=== PATIENT | female | born 1965 | race Caucasian/White ===

== ENCOUNTER 2016-10-15 17:16 | Observation (INO) | payer MEDICAID ==
--- NOTE | 2016-10-15 18:02 | CPEKG ---
Heart Rate: 69 RR Interval: 870 P-R Interval: 180 QRSD Interval: 94 QT Interval: 416 QTC Interval: 446 P Ridgway: 47 QRS Ridgway: 17 T Wave Ridgway: 38 EKG Severity - NORMAL ECG - EKG Impression: SINUS RHYTHM Electronically Signed By: Jay Crook 15-Oct-2016 21:22:39
[2016-10-15 18:10] LABS: % IMMATURE GRANULYOCYTES 0.3 % (0.0-1.1); ABSOLUTE IMMATURE GRANULOCYTES 0.02 10^3/uL (0.00-0.10); ADD DIFF? NO; ADD MORPH? NO; ADD SCAN? NO; ATYPICAL LYMPHOCYTE FLAG 10 (0-99); FRAGMENT RBC FLAG 0 (0-99); HEMATOCRIT 42.2 % (38.0-47.0); HEMOGLOBIN 13.9 g/dL (12.6-16.3); LEFT SHIFT FLG 0 (0-99); LIPEMIA HEMOLYSIS FLAG 80 (0-99); MEAN CELL HEMOGLOBIN 27.3 pg (27.9-34.1); MEAN CELL HEMOGLOBIN CONCENTR. 32.9 g/dL (32.4-36.7); MEAN CELL VOLUME 82.9 fL (81.5-99.8); MEAN PLATELET VOLUME 10.4 fL (8.7-11.7); PLATELET CLUMPS FLAG 10 (0-99); PLATELET COUNT 280 10^3/uL (150-400); RED BLOOD CELL COUNT 5.09 10^6/uL (4.18-5.33); RED CELL DISTRIBUTION WIDTH 12.9 % (11.5-15.2)
[2016-10-15 18:34] LABS: TROPONIN I < 0.012 ng/mL (0-0.034)
[2016-10-15 18:57] LABS: ANION GAP 11 mEq/L (8-16); CALCIUM 8.8 mg/dL (8.5-10.4); CARBON DIOXIDE 23 mEq/l (22-31); CHLORIDE 105 mEq/L (97-110); CREATININE 0.6 mg/dL (0.6-1.0); GLOMERULAR FILTRATION RATE > 60; GLUCOSE 106 mg/dL (70-100); POTASSIUM 3.3 mEq/L (3.5-5.2); SODIUM 139 mEq/L (134-144)
--- NOTE | 2016-10-15 19:54 | EDPHY ---
H & P Stated Complaint: left shoulder scapula pain that radiates down arm, dull CP HPI/ROS: Chief complaint: Left shoulder pain History of present illness: This is a 51-year-old female who presents to the emergency department for evaluation of left shoulder pain. Patient reports she has had pain for the last few weeks. It has been intermittent in nature. She reports the pain is around the scapula and upper shoulder. She does report the pain radiates down to her elbow. She is concerned because today she started developed chest pain. She describes left-sided chest pain. She has a hard time describing it. She denies specific precipitating factors. She denies alleviating factors. She denies other associated signs or symptoms including no cough, no trouble breathing, no fever or cold symptoms. Review of systems: A 10 point review of systems was obtained and other than described above was negative - Personal History LMP (Females 10-55): Over 28 Days Ago Current Tetanus Diphtheria and Acellular Pertussis (TDAP): Unsure - Social History Smoking Status: Never smoked - Physical Exam Exam: General Appearance: Alert, nontoxic. Eyes: Pupils equal and round no pallor or injection. ENT, Mouth: Mucous membranes moist. Respiratory: There are no retractions, lungs are clear to auscultation. Cardiovascular: Regular rate and rhythm. Gastrointestinal: Abdomen is soft and nontender, no masses, bowel sounds normal. Neurological: Alert and oriented x4. Strength and sensation intact and symmetrical. Skin: Warm and dry, no rashes. Musculoskeletal: Neck is supple nontender. Extremities are symmetrical, full range of motion. Psychiatric: Patient is oriented X 3, there is no agitation. Constitutional: Initial Vital Signs Temperature (C) 36.8 C 10/15/16 17:18 Heart Rate 82 10/15/16 17:18 Respiratory Rate 14 10/15/16 17:18 Blood Pressure 116/83 H 10/15/16 17:18 O2 Sat (%) 96 10/15/16 17:18 O2 Delivery Mode Room Air Allergies/Adverse Reactions: No Known Allergies Allergy (Unverified 10/15/16 21:30) Home Medications: Medication Instructions Recorded Ibuprofen [Motrin (*)] 400 - 800 mg PO BID PRN 10/15/16 Medical Decision Making - Diagnostics Imaging: Imaging Impressions Chest X-Ray 10/15/16 18:50 Impression: Clear lungs except for minimal bibasilar atelectasis. ED Course/Re-evaluation: Patient is discussed with my secondary supervising physician Dr. Ezequiel Hunt. Patient presents to the emergency department complaining of left shoulder discomfort. However, she developed chest pain today which is new for her. She does have a very strong family history of cardiac disease, she has never had a cardiac evaluation. Initial evaluation here is unremarkable. She will be admitted to the [facility] for cardiac rule out. Plan has been discussed with the patient who voiced understanding and agreement with it. Differential Diagnosis: Included but not limited to musculoskeletal pain, pneumothorax, pulmonary infections, pulmonary embolism, ACS, reflux - Data Points Laboratory Results: Laboratory Results 10/15/16 18:00 10/15/16 18:00 10/15/16 10/15/16 10/15/16 18:00 18:00 18:00 WBC RBC Hgb Hct MCV MCH MCHC RDW Plt Count MPV Neut % (Auto) Lymph % (Auto) [place] % (Auto) Eos % (Auto) Baso % (Auto) Nucleat RBC Rel Count Absolute Neuts (auto) Absolute Lymphs (auto) Absolute Monos (auto) Absolute Eos (auto) Absolute Basos (auto) Absolute Nucleated RBC Immature Gran % Immature Gran # D-Dimer < 0.27 ug/mLFEU ug/mLFEU (0.00-0.50) Sodium 139 mEq/L mEq/L (134-144) Potassium 3.3 mEq/L L mEq/L (3.5-5.2) Chloride 105 mEq/L mEq/L (97-110) Carbon Dioxide 23 mEq/l mEq/l (22-31) Anion Gap 11 mEq/L mEq/L (8-16) BUN 16 mg/dL mg/dL (7-23) Creatinine 0.6 mg/dL mg/dL (0.6-1.0) Estimated GFR > 60 Glucose 106 mg/dL H mg/dL (70-100) Calcium 8.8 mg/dL mg/dL (8.5-10.4) Troponin I < 0.012 ng/mL ng/mL (0-0.034) Beta HCG, Qual NEGATIVE 10/15/16 18:00 WBC 7.60 10^3/uL 10^3/uL (3.80-9.50) RBC 5.09 10^6/uL 10^6/uL (4.18-5.33) Hgb 13.9 g/dL g/dL (12.6-16.3) Hct 42.2 % % (38.0-47.0) MCV 82.9 fL fL (81.5-99.8) MCH 27.3 pg L pg (27.9-34.1) MCHC 32.9 g/dL g/dL (32.4-36.7) RDW 12.9 % % (11.5-15.2) Plt Count 280 10^3/uL 10^3/uL (150-400) MPV 10.4 fL fL (8.7-11.7) Neut % (Auto) 52.4 % % (39.3-74.2) Lymph % (Auto) 36.2 % % (15.0-45.0) [place] % (Auto) 8.3 % % (4.5-13.0) Eos % (Auto) 2.1 % % (0.6-7.6) Baso % (Auto) 0.7 % % (0.3-1.7) Nucleat RBC Rel Count 0.0 % % (0.0-0.2) Absolute Neuts (auto) 3.99 10^3/uL 10^3/uL (1.70-6.50) Absolute Lymphs (auto) 2.75 10^3/uL 10^3/uL (1.00-3.00) Absolute Monos (auto) 0.63 10^3/uL 10^3/uL (0.30-0.80) Absolute Eos (auto) 0.16 10^3/uL 10^3/uL (0.03-0.40) Absolute Basos (auto) 0.05 10^3/uL 10^3/uL (0.02-0.10) Absolute Nucleated RBC 0.00 10^3/uL 10^3/uL (0-0.01) Immature Gran % 0.3 % % (0.0-1.1) Immature Gran # 0.02 10^3/uL 10^3/uL (0.00-0.10) D-Dimer Sodium Potassium Chloride Carbon Dioxide Anion Gap BUN Creatinine Estimated GFR Glucose Calcium Troponin I Beta HCG, Qual Departure - Departure Disposition: [facility] Inpatient Acute Clinical Impression: Chest pain Qualifiers: Chest pain type: unspecified Qualified Code(s): R07.9 - Chest pain, unspecified Condition: Good
[2016-10-15] MEDS ORDERED: ONDANSETRON DISINTEGRATING 4 MG TAB PO PRN (21:30)
[2016-10-15] MEDS: ACETAMINOPHEN 325 MG TAB PO PRN (22:05)
[2016-10-15] MEDS ORDERED: PROTOCOL POTASSIUM 1 DOSE MISC PRN (22:39)
--- NOTE | 2016-10-15 23:18 | GHP ---
[f rep st] HISTORY AND PHYSICAL DATE OF ADMISSION: 10/15/2016 CHIEF COMPLAINT: Chest and shoulder pain. 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 She notes she initially thought she had injured her shoulder when she developed pain in her left scapula with radiation down her arm. That pain in itially went away, but then came back again in the last couple of days. It was so severe that she w as having difficulty sleeping. There seemed to be also an association of chest pain that she says w as a lot like indigestion and heartburn. These are symptoms she has not had in the past. She does have a family history of heart disease and became concerned that this could be related to her heart and for that reason, came to the ER for further evaluation. She currently denies any active pain. She does not note any alleviating or exacerbating features for this pain. 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 PAST MEDICAL HISTORY: Includes AKA, status post trauma as a child, and infection of her stump. PAST SURGICAL HISTORY: 1. Multiple left lower extremity surgeries as a child. 2. Laparoscopic exploration for chronic abdominopelvic pain. SOCIAL HISTORY: Patient has 5 children. She is a never smoker. She denies alcohol or drugs. She is . FAMILY HISTORY: Patient notes that her mother had coronary artery disease in her 50s and had a byvt ss surgery in her 50s but lived to be 84. Sister also with heart disease that she does not know raji linares details about. REVIEW OF SYSTEMS: 10-point review of systems obtained, negative except as per HPI. MEDICATIONS: Include ibuprofen. ALLERGIES: No known drug allergies. PHYSICAL EXAM: VITAL SIGNS: BP 103/72, heart rate 76, respiratory rate 16, O2 sats 95% on room air . Temperature is 36.7. GENERAL APPEARANCE: Well-developed, well-nourished female, awake and alert , no acute distress. EYES: Anicteric. HENT: Oropharynx clear. CARDIOVASCULAR: RRR. No MRG. P ULMONARY: CTA bilaterally. Normal work of breathing. ABDOMEN: Soft, nontender. Positive bowel s ounds. EXTREMITIES: No clubbing, cyanosis, or edema. She does have a left AKA. SKIN: Warm, dry, well perfused. NEURO/PSYCH: Oriented, appropriate, calm, pleasant. DATA RESULTS: Chest x-ray personally reviewed and interpreted showing clear lungs, minimal basilar atelectasis. EKG personally reviewed and interpreted, showing sinus rhythm. Labs: CBC is unremarkable. D-dimer is negative. Chemistry notable only for a potassium of 3.3. T roponin is less than 0.012. ASSESSMENT AND PLAN: This is a 51-year-old female with past medical history of [id number] amput ation with recurrent infection, presenting with chest pain, and left shoulder and arm pain. 1. Chest, shoulder and arm pain, concerning for possible anginal equivalent. She does have a famil y history of early onset cardiac disease in her mother. Initial workup so far negative including ne gative D-dimer, negative troponin and normal EKG. Plan will be for exercise stress test in the [facility]. She will be monitored on telemetry overnight with serial troponins obtained. She has been giv en an aspirin. 2. Hypokalemia. We will replete. 3. History of amputation and history of stump infection, with no current issues. 4. Disposition: Observation status. I suspect she will need less than 48-hour stay for evaluation and management of above. 5. The patient is new to my care. Old records reviewed, summarized as per HPI and past medical his tory. Care plan reviewed with ER physician, including plans for a stress test in the morning. /[id number]/MODL
[2016-10-16] MEDS ORDERED: POTASSIUM CL 10 MEQ TAB PO ONE (02:44)
[2016-10-16] MEDS: ACETAMINOPHEN 325 MG TAB PO PRN (03:45)
[2016-10-16] MEDS ORDERED: ASPIRIN 325 MG TAB PO SCH (09:00)
[2016-10-16] MEDS ORDERED: REGADENOSON 0.4 MG/5 ML SYR IVP ONE (10:22)
--- NOTE | 2016-10-16 11:40 | CPR ---
[f rep st] NONINVASIVE CARDIAC PROCEDURE REPORT DATE OF PROCEDURE: 10/16/2016 PROCEDURE: Lexiscan nuclear stress test. INDICATION FOR PROCEDURE: A 51-year-old female with strong family history of coronary artery diseas e, but no previous cardiac history who presented to the emergency room with 3 weeks of waxing and wa karine, left scapular pressure radiating down her left arm that has been getting worse with exertion. Her D-dimer was negative. She has had negative serial troponins. Nuclear stress testing is being ordered for further risk stratification. DESCRIPTION OF PROCEDURE: Informed consent was obtained. Baseline heart rate and blood pressure al jorge with resting EKG were obtained in the supine position. There was continuous pulse oximetry, wit h intermittent blood pressures every 2 minutes. Stress was performed via standard Lexiscan protocol with Lexiscan 0.4 mg IV push followed by 22.8 millicuries of sestamibi. She was observed for the s tress portion of the test lasting 2 minutes and another 5 minutes of recovery. FINDINGS: Baseline heart rate 72 beats per minute, baseline blood pressure 100/60 mmHg. Baseline o xygen saturation is 97%. Baseline EKG shows normal sinus rhythm at 69 beats per minute with normal QRS axis and intervals. Baseline corrected QT interval is 446 milliseconds. Following injection of Lexiscan, heart rate bessie slightly to 87 beats per minute with a blood pressure of 108/62 mmHg. Pe ak blood pressure was 110/64 mmHg. The patient complained of some shortness of breath and head full ness along with numbness and tingling in her right leg. Her symptoms resolved within minutes and du ring recovery her vital signs were stable with heart rates around 78 beats per minute with blood pre ssure around 110/62 mmHg. Oxygen saturation remained greater than 95% throughout the duration of th e test. There were no significant ischemic EKG changes during the test; however, there was prolonga tion of corrected QT interval to 495 milliseconds around the time of peak stress. IMPRESSION: 1. Unremarkable Lexiscan nuclear stress test. 2. Admission with exertional left shoulder and left scapular pain radiating down the left arm. 3. Prolongation of corrected QT interval with Lexiscan stress. 4. 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 5. Strong family history of coronary artery disease. PLAN: The patient will undergo stress imaging at this time. If stress imaging is abnormal, she annabel l need rest scans and likely an overnight stay as she has had chest discomfort and left arm discomfo rt occurring randomly throughout this admission. /[id number]/MODL
[2016-10-16 11:45] VITALS: BP 101/60; PULSE 73; RESP 16; TEMP 97.8; O2SAT 94
--- NOTE | 2016-10-16 16:40 | PDDCSUM ---
Discharge Summary Discharge Summary: DISCHARGE DIAGNOSES: -shoulder pain of uncertain etiology, resolved MERCHANT TAILOR: Dr. Rui Becreril of Cardiology PROCEDURES: Lexiscan stress test with myocardial perfusion imaging HOSPITAL COURSE SUMMARY: This patient came in after some exertional related left shoulder pain. Her initial evaluation showed no evidence of injury or ischemia, no arrhythmia, no heart failure. She had no sign of PE. She was moving her arm and shoulder without difficulty and there was no sign of injury. She was observed overnight on hospital monitor and with repeat troponins all of which were normal. She underwent Lexiscan stress testing with myocardial perfusion imaging which was normal. At this point she is stable for discharge to home. I did review with her the possibility that there is some other undiagnosed cause of her pain, and also and unlikely but always existed possibility of false negative test results here. She knows to seek out ongoing attention for any recurrent symptoms. PENDING TEST RESULTS: None MEDICATION CHANGES: None FOLLOW-UP PLAN: With her primary care physician as needed
== END 2016-10-16 15:09 | disposition home or self-care (01) ==
LOC: F1N 21:15
PROVIDERS: ADMIT Internal Medicine; ATTEND Internal Medicine
DX: R07.9 Chest pain, unspecified (principal); M25.512 Pain in left shoulder; Z82.49 Family history of ischemic heart disease and other diseases of the circulatory system; Z89.612 Acquired absence of left leg above knee
CPT/HCPCS: 71020; 78451; 93005; 93017; A9500; G0378; J2785

== ENCOUNTER → 2017-03-31 | Outpatient (CLI) | payer MEDICAID | LOC: FIMAGING 15:43 | PROVIDERS: ATTEND Orthopaedic Surgery | DX: M17.11 Unilateral primary osteoarthritis, right knee (principal) ==

== ENCOUNTER 2017-04-25 08:50 | Inpatient (IN) | payer MEDICAID ==
--- NOTE | 2017-04-25 06:44 | PDHPUP ---
History & Physical Update H&P update statement: This history and physical update is based on an assessment of the patient which was completed after admission or registration (within 24 hours), but prior to the surgery/procedure.
--- NOTE | 2017-04-25 06:44 | PDIAF ---
- Diagnosis Diagnosis: right knee djd Code Status: Full Code - Medication Management Discharge Medications: Medications to Continue on Transfer NK [No Known Home Meds] 04/19/17 [Last Taken Unknown] Discharge Medications: Refer to the Discharge Home Medication list for PRN reason. - Orders Services needed: Physical Therapy Activity/Weight Bearing Restrictions: daily dressing changes. may shower without bandage. no soaking or immersion. wbat. rom as tolerated. seek attn for increasing leg pain, swelling, drainage, other focal complaint - Follow Up Care Current Providers and Referrals: Ezequiel Dawkins MD [Primary Care Provider] -
[~2017-04-25 08:50] MED LIST: BACITRACIN 50,000 UNITS/10 ML SYR IRR ONE; BUPIVACAINE 0.5% 30 ML SDV ONE; CALCIUM CHLORIDE 1 GM/10 ML INJ ONE; NS IV ONE; POLYMYXIN B SULFATE 500,000 UNIT/10 ML SYR IRR ONE; ROPIVACAINE 0.2% 80 MG, EPINEPHrine 0.2 MG, KETOROLAC TROMETHAMINE 30 MG, morphINE 10 M... IU ONE; THROMBIN (BOVINE) 5,000 UNIT VIAL TP ONE; TRANEXAMIC ACID IV ONE; ceFAZolin 2 GM/DEXTROSE 100 ML IV ONE
[2017-04-25] MEDS ORDERED: FAMOTIDINE 20 MG TAB PO ONE (09:09)
[2017-04-25] MEDS ORDERED: ACETAMINOPHEN 325 MG TAB PO ONE (09:09)
[2017-04-25] MEDS ORDERED: LIDOCAINE 1% 2 ML INJ ID PRN (09:27)
[2017-04-25] MEDS ORDERED: LR 1,000 ML IV ONE (09:27)
[2017-04-25] MEDS ORDERED: CALCIUM CHLORIDE 1 GM/10 ML INJ ONE (10:00)
[2017-04-25] MEDS ORDERED: THROMBIN (BOVINE) 5,000 UNIT VIAL TP ONE (10:00)
[2017-04-25] MEDS ORDERED: ceFAZolin 1 GM/5 ML SYR ONE ×2 (10:01→10:02)
[2017-04-25] MEDS ORDERED: MIDAZOLAM 2 MG/2 ML VIAL ONE (10:19)
[2017-04-25] MEDS ORDERED: HYDROmorphONE/DILAUDID 2 MG/ML INJ ONE (10:32)
[2017-04-25] MEDS ORDERED: LIDOCAINE 2% 5 ML SDV ONE (10:32)
[2017-04-25] MEDS ORDERED: PROPOFOL 200 MG/20 ML VIAL ONE ×2 (10:32→10:58)
[2017-04-25] MEDS ORDERED: ONDANSETRON 4 MG/2 ML VIAL ONE (10:32)
[2017-04-25] MEDS ORDERED: DEXAMETHASONE 4 MG/ML VIAL ONE (10:32)
[2017-04-25] MEDS ORDERED: KETOROLAC 30 MG/1 ML SDV ONE (10:32)
[2017-04-25] MEDS ORDERED: MIDAZOLAM 2 MG/2 ML VIAL IVP ONE (10:38)
--- NOTE | 2017-04-25 10:38 | PDANEPAE ---
ANE History of Present Illness tka ANE Past Medical History - Cardiovascular History Hx Hypertension: No Hx Arrhythmias: No Hx Chest Pain: No Hx Coronary Artery / Peripheral Vascular Disease: No Hx CHF / Valvular Disease: No Hx Palpitations: No - Pulmonary History Hx COPD: No Hx Asthma/Reactive Airway Disease: No Hx Recent Upper Respiratory Infection: No Hx Oxygen in Use at Home: No Hx Sleep Apnea: No Sleep Apnea Screening Result - Last Documented: Negative - Neurologic History Hx Cerebrovascular Accident: No Hx Seizures: No Hx Dementia: No - Endocrine History Hx Diabetes: No - Renal History Hx Renal Disorders: No - Liver History Hx Hepatic Disorders: No - Neurological & Psychiatric Hx Hx Neurological and Psychiatric Disorders: No - Cancer History Hx Cancer: No - Congenital Disorder History Hx Congenital Disorders: No - GI History Hx Gastrointestinal Disorders: No - Other Health History Other Health History: amputation of left leg - Chronic Pain History Chronic Pain: Yes (right hip) - Surgical History Prior Surgeries: 2016 infection debridment ANE Review of Systems Review of Systems: - Exercise capacity METS (RN): 4 METS ANE Patient History - Allergies Allergies/Adverse Reactions: No Known Allergies Allergy (Unverified 10/15/16 21:30) - Home Medications Home Medications: NK [No Known Home Meds] 04/19/17 [Last Taken Unknown] - NPO status NPO Since - Liquids (Date): 04/24/17 NPO Since - Liquids (Time): 22:00 NPO Since - Solids (Date): 04/24/17 NPO Since - Solids (Time): 20:00 - Anes Hx Anes Hx: no prior problems - Smoking Hx Smoking Status: Never smoked - Family Anes Hx Family Hx Anesthesia Complications: none ANE Labs/Vital Signs - Vital Signs Blood Pressure: 114/63 Heart Rate: 68 Respiratory Rate: 20 O2 Sat (%): 93 Height: 177.8 cm Weight: 106.594 kg ANE Physical Exam - Airway Mallampati Score: Class 2 Mouth exam: normal dental/mouth exam - Pulmonary Pulmonary: no respiratory distress - Cardiovascular Cardiovascular: regular rate and rhythym ANE Anesthesia Plan Anesthesia Plan: GA w LMA Regional Anesthesia: adductor canal FNB
[2017-04-25] MEDS ORDERED: PROMETHAZINE HCL 25 MG/ML INJ IVP PRN (10:43)
[2017-04-25] MEDS ORDERED: ONDANSETRON DISINTEGRATING 4 MG TAB PO PRN (10:43)
[2017-04-25] MEDS ORDERED: METOCLOPRAMIDE 10 MG/2 ML VIAL IVP PRN (10:43)
[2017-04-25] MEDS ORDERED: PROMETHAZINE HCL 25 MG SUPPR PR PRN (10:43)
[2017-04-25] MEDS ORDERED: BISACODYL 10 MG SUPP PR PRN (10:43)
[2017-04-25] MEDS ORDERED: DIAZEPAM 5 MG TAB PO PRN (10:43)
[2017-04-25] MEDS ORDERED: diphenhydrAMINE 25 MG CAP PO PRN (10:43)
[2017-04-25] MEDS ORDERED: LACTULOSE 20 GM/30 ML UDCUP PO PRN (10:43)
[2017-04-25] MEDS ORDERED: TEMAZEPAM 15 MG CAP PO PRN (10:43)
[2017-04-25] MEDS ORDERED: traMADol 50 MG TAB PO PRN (10:43)
[2017-04-25] MEDS ORDERED: POLYETHYLENE GLYCOL 3350 17 GM PKT PO PRN (10:43)
[2017-04-25] MEDS ORDERED: ONDANSETRON 4 MG/2 ML VIAL IVP PRN ×2 (10:43→13:01)
[2017-04-25] MEDS ORDERED: DIPHENOXYLATE/ATROPINE LOMOTIL 1 TAB PO PRN (10:43)
[2017-04-25] MEDS ORDERED: MAGNESIUM HYDROXIDE 30 ML UDCUP PO PRN (10:43)
[2017-04-25] MEDS ORDERED: LR 1,000 ML IV SCH (11:00)
[2017-04-25] MEDS ORDERED: ceFAZolin 2 GM/SWFI 2 GM/20 ML SYR IVP ONE (11:00)
[2017-04-25] MEDS ORDERED: ROPIVACAINE HCL 150 MG/30 ML INJ ONE (11:08)
[2017-04-25] MEDS ORDERED: HYDROmorphONE/DILAUDID 1 MG/ML INJ ONE ×2 (12:57→13:27)
[2017-04-25] MEDS: HYDROmorphONE/DILAUDID 1 MG/ML INJ IVP PRN ×5 (13:00→13:55)
[2017-04-25] MEDS ORDERED: LR 500 ML IV PRN (13:01)
[2017-04-25] MEDS ORDERED: NALOXONE HCL 0.4 MG/ML INJ IVP PRN (13:01)
[2017-04-25] MEDS ORDERED: HYDROCODONE/APAP 5/325 TAB PO PRN (13:01)
--- NOTE | 2017-04-25 13:01 | POSTANESTH ---
Post Anesthetic Evaluation Cardiovascular Status: Normal, Stable Respiratory Status: Normal, Stable Level of Consciousness/Mental Status: Can Participate in Eval Pain Control: Adequate, Prn Tx Ordered Nausea/Vomiting Control: Adequate, Prn Tx Ordered Complications Possibly Related to Anesthesia: None Noted
[2017-04-25] MEDS: ACETAMINOPHEN 325 MG TAB PO SCH ×3 (13:18→23:25)
[2017-04-25] MEDS: TRANEXAMIC ACID 650 MG TAB PO SCH ×2 (13:50→20:11)
[2017-04-25] MEDS ORDERED: ceFAZolin 2 GM/DEXTROSE 100 ML IV SCH (14:00)
[2017-04-25] MEDS: oxyCODONE IR 5 MG TAB PO PRN (14:47)
--- NOTE | 2017-04-25 16:06 | ASMTCMCOM ---
CM Note CM Note Notes: 04/25/2017 Case Management Note Reviewed chart. Pt admitted for right TKA. No case management d/c needs identified at this time d/t pt age, marital status and activity levels prior to admission. Waiting on PT and OT evals for discharge planning, anticipating home with family support with follow up as directed. Case Management d/c poc: to be determined. Case management to follow. Date Signed: 04/25/2017 04:05 PM Electronically Signed By:Ana Szymanski RN
[2017-04-25] MEDS: ceFAZolin 2 GM in D5W 100 ML IV SCH (20:09)
[2017-04-25] MEDS: SENNOSIDES/DOCUSATE SODIUM TAB PO SCH (20:10)
[2017-04-25] MEDS: ASPIRIN 325 MG TAB PO SCH (20:10)
[2017-04-25] MEDS: FAMOTIDINE 20 MG TAB PO SCH (20:10)
[2017-04-26] MEDS: TRANEXAMIC ACID 650 MG TAB PO SCH (02:57)
[2017-04-26] MEDS: ceFAZolin 2 GM in D5W 100 ML IV SCH (02:57)
[2017-04-26] MEDS: ACETAMINOPHEN 325 MG TAB PO SCH ×3 (05:16→17:35)
[2017-04-26 05:30] LABS: HEMATOCRIT 35.4 % (38.0-47.0)
--- NOTE | 2017-04-26 07:33 | SOAPPROG ---
SOAP Progress Note Assessment/Plan: Assessment: right knee djd s/p tka Plan: rehab eval pt/ot dvt precautions 04/26/17 07:31 Subjective: minimal pain currently no cp or sob wants to go to rehab Objective: Vital Signs Temp Pulse Resp BP Pulse Ox 36.6 C 87 16 108/55 L 94 04/26/17 05:17 04/26/17 05:17 04/26/17 05:17 04/26/17 05:17 04/26/17 05:17 Laboratory Results 04/26/17 05:10 04/25/17 04/26/17 04/27/17 05:59 05:59 05:59 Intake Total 2360 Output Total 800 Balance 1560 dressing intact intact pf,d,fehl toes warm and pink sensation intact to light touch xrays stable, anatomic alignemtn ICD10 Worksheet Patient Problems: Problems Problem Status Onset Chest pain Acute
[2017-04-26] MEDS: SENNOSIDES/DOCUSATE SODIUM TAB PO SCH ×2 (09:54→20:10)
[2017-04-26] MEDS: ASPIRIN 325 MG TAB PO SCH (10:03)
[2017-04-26] MEDS: FAMOTIDINE 20 MG TAB PO SCH ×2 (10:05→20:10)
--- NOTE | 2017-04-26 15:44 | ASMTCMCOM ---
KANU Note CM Note Notes: I spoke with patient re: discharge planning, and she became frustrated, angry, and upset. I had hoped to discuss different rehab options with patient after Joyce from [facility] informed me that she received an order on the patient and that admission was pending further therapy evals. The patient and her felt that everyone (PT,OT, Dr Mejia) had told her that she was a perfect candidate for inpatient rehab and they could not understand why I was asking them to consider other options. I explained that various factors play into admission into inpatient rehab and that it was too early to know definitively whether she would qualify. I also explained that we ask everyone to consider various options when discharge planning. Patient accused me of not being her advocate, not doing my job correctly, and demanded that I talk to everyone else who had told her that she should go to inpatient rehab. I apologized that I was making her feel this way and emphasized that I was advocating for her. I told her that I would follow up with Joyce and provide more information once I had it. I spoke with Joyce who offered to call patient to answer her questions/concerns. Joyce will also follow up with patient in person tomorrow. KANU will follow. Date Signed: 04/26/2017 03:42 PM Electronically Signed By:Tracey Landis RN
--- NOTE | 2017-04-26 16:34 | ASMTCMCOM ---
CM Note CM Note Notes: I called the patient field service representative and left a message asking for her to touch base with patient and due to aforementioned CM note. Will follow up tomorrow. Date Signed: 04/26/2017 04:34 PM Electronically Signed By:Tracey Landis RN
[2017-04-26] MEDS: oxyCODONE IR 5 MG TAB PO PRN ×2 (17:35→20:49)
[2017-04-27] MEDS: ACETAMINOPHEN 325 MG TAB PO SCH ×3 (01:15→11:56)
[2017-04-27] MEDS: oxyCODONE IR 5 MG TAB PO PRN ×4 (02:08→13:16)
[2017-04-27 04:59] LABS: HEMATOCRIT 36.6 % (38.0-47.0); HEMOGLOBIN 12.4 g/dL (12.6-16.3)
--- NOTE | 2017-04-27 08:41 | GDS ---
[f rep st] DISCHARGE SUMMARY ADMISSION DIAGNOSIS: Right knee degenerative joint disease. DISCHARGE DIAGNOSIS: Right knee degenerative joint disease. PROCEDURE: Right total knee arthroplasty/MAKOplasty. OPERATIVE INDICATIONS: The patient is a 51-year-old woman with a left knee amputation. She has end- stage arthritis to her right knee. Clinical, radiographic features are consistent with this. I have recommended total knee replacement. She understood the risks, benefits, alternatives. Wished to pr oceed. Written consent was signed and placed in patient's chart. HOSPITAL COURSE: Patient was admitted to the hospital floor, after uncomplicated total knee arthropl asty. Her postoperative course was more difficult, given the amputation of her left lower extremity. She has been evaluated for the rehab service. I feel she is appropriate candidate. At the time of discharge, she is tolerating an oral diet. Her pain is well controlled on oral medicines. She is v oiding without difficulty. Her dressing is clean, dry, and intact. She has no calf swelling or tend erness. Negative Homans bilaterally. X-rays are stable alignment. DISCHARGE MEDICATIONS: Oxycodone 5 mg 1-2 every 3 hours p.r.n. pain, Valium 5 mg p.o. q.8 hours p.r. n. pain, aspirin 325 mg p.o. daily. DISCHARGE ACTIVITY: She is range of motion, weightbearing as tolerated. Fall precautions. May show er without the bandage. No soaking or immersion. Seek attention for increasing redness, swelling, d rainage, or discharge. Copy requested to: Primary Care Physician /[id number]/MODL
[2017-04-27] MEDS: SENNOSIDES/DOCUSATE SODIUM TAB PO SCH (09:43)
[2017-04-27] MEDS: FAMOTIDINE 20 MG TAB PO SCH (09:43)
[2017-04-27] MEDS: ASPIRIN 325 MG TAB PO SCH (09:43)
[2017-04-27 11:37] VITALS: RESP 16
[2017-04-27 11:41] VITALS: BP 102/64; PULSE 92; TEMP 98.2; O2SAT 92
--- NOTE | 2017-04-27 11:43 | PDIAF ---
- Diagnosis Diagnosis: right knee djd Code Status: Full Code - Medication Management Discharge Medications: Medications to Continue on Transfer Aspirin [Aspirin 325 mg (*)] 325 mg PO DAILY tab 04/27/17 [Last Taken Unknown] Diazepam [Valium 5 MG (*)] 5 mg PO Q6HRS PRN #30 tab 04/27/17 [Last Taken Unknown] oxyCODONE IR [Oxycodone Ir (*)] 5 - 10 mg PO Q3HRS PRN #90 tab 04/27/17 [Last Taken Unknown] Discharge Medications: Refer to the Discharge Home Medication list for PRN reason. - Orders Services needed: Home Care, Physical Therapy Home Care Face to Face: I certify that this patient was under my care and that I had the required [id number] encounter meeting the encounter requirements on the discharge day. My findings support the fact that the patient is homebound as defined in Home Care Face to Face Continued: CMS Chapter 7 Medicare Benefits Manual 30.1.1 , The condition of the patient is such that there exists a normal inability to leave home and consequently, leaving home would require a considerable and taxing effort. Diet Recommendation: no restrictions on diet Diet Texture: Regular Texture Diet Activity/Weight Bearing Restrictions: daily dressing changes. may shower without bandage. no soaking or immersion. wbat. rom as tolerated. seek attn for increasing leg pain, swelling, drainage, other focal complaint - Follow Up Care Current Providers and Referrals: Ezequiel Dawkins MD [Primary Care Provider] -
--- NOTE | 2017-04-27 13:53 | ASMTCMCOM ---
CM Note CM Note Notes: Pt accepted at IR and discharging today. Pt Rep saw pt this morning. No new issues. Spoke with pt and her , pt relieved she is going to IR. Date Signed: 04/27/2017 01:53 PM Electronically Signed By:WALTER Diggs
--- NOTE | 2017-04-27 13:59 | ASDISCHSUM ---
Discharge Information Plan Status:Inpatient Rehab Medically Cleared to Leave:04/27/2017 Discharge Date:04/27/2017 CM D/C Disposition:[facility]T D/C Disposition:[facility] IP Projected Discharge Date:04/27/2017 11:00 AM Transportation at D/C:Medicaid Transportation Discharge Delay Reason: Follow-Up Date:04/27/2017 11:00 AM Discharge Slot: Final Diagnosis: Placement Information Referral Type:Acute Care Referral ID:[id number] Provider Name: Address 1: Phone Number: Address 2: Fax Number: City: Selection Factors: State: Patient Contact Information Contact Name:SANTOSARSALANCAROLINA Relationship: Address:[address] [place] [address] Work Phone: Nelson:[facility] Phone: [facility] Code:[place] [address] Email: Financial Information Financial Class: Primary Plan Desc:[employer] Primary Plan Number:[id number] Secondary Plan Desc: Secondary Plan Number: Assessment Information [facility] CM Progress Note CM Note CM Note Notes: 04/25/2017 Case Management Note Reviewed chart. Pt admitted for right TKA. No case management d/c needs identified at this time d/t pt age, marital status and activity levels prior to admission. Waiting on PT and OT evals for discharge planning, anticipating home with family support with follow up as directed. Case Management d/c poc: to be determined. Case management to follow. Date Signed: 04/25/2017 04:05 PM Electronically Signed By:Ana Szymanski RN [facility] CM Progress Note CM Note CM Note Notes: I spoke with patient re: discharge planning, and she became frustrated, angry, and upset. I had hoped to discuss different rehab options with patient after Joyce from Inpatient Rehab informed me that she received an order on the patient and that admission was pending further therapy evals. The patient and her felt that everyone (PT,OT, Dr Mejia) had told her that she was a perfect candidate for inpatient rehab and they could not understand why I was asking them to consider other options. I explained that various factors play into admission into inpatient rehab and that it was too early to know definitively whether she would qualify. I also explained that we ask everyone to consider various options when discharge planning. Patient accused me of not being her advocate, not doing my job correctly, and demanded that I talk to everyone else who had told her that she should go to inpatient rehab. I apologized that I was making her feel this way and emphasized that I was advocating for her. I told her that I would follow up with Joyce and provide more information once I had it. I spoke with Joyce who offered to call patient to answer her questions/concerns. Joyce will also follow up with patient in person tomorrow. CM will follow. Date Signed: 04/26/2017 03:42 PM Electronically Signed By:Tracey Landis RN [facility] Progress Note CM Note CM Note Notes: I called the patient circulation representative and left a message asking for her to touch base with patient and due to aforementioned CM note. Will follow up tomorrow. Date Signed: 04/26/2017 04:34 PM Electronically Signed By:Tracey Landis RN [facility] CM Progress Note CM Note CM Note Notes: Pt accepted at IR and discharging today. Pt Rep saw pt this morning. No new issues. Spoke with pt and her , pt relieved she is going to IR. Date Signed: 04/27/2017 01:53 PM Electronically Signed By:WALTER Diggs Intervention Information
--- NOTE | 2017-04-29 15:28 | GOP ---
[f rep st] OPERATIVE REPORT DATE OF OPERATION: 04/25/2017 SURGEON: Vinod Mejia MD INCUBATOR TENDER: Benjamin Brooke, NUCLEAR TECHNICIAN, [facility], who was medically necessary for the entirety of the case. PREOPERATIVE DIAGNOSIS: Right knee arthritis. POSTOPERATIVE DIAGNOSIS: Right knee arthritis. PROCEDURE PERFORMED: Right total knee arthroplasty, MAKOplasty. FINDINGS: SPECIMENS: To pathology: The bony cuts. ESTIMATED BLOOD LOSS: 200 cc. INDICATIONS: The patient is a 51-year-old woman with end-stage arthritis to the right knee. She has an amputation to her left leg and uses a walking prosthesis. She has clinical radiograph features c onsistent with end-stage arthritis to her right knee. She has failed all attempts at conservative ma nagement. I have recommended operative intervention with total knee replacement. She understood the risks, benefits, and alternatives, and wished to proceed. Written consent was signed and placed in patient's chart. DESCRIPTION OF PROCEDURE: Patient was identified in the preanesthesia area. The right knee clearly demarcated as operative site with indelible marker. She was given 2 g of Ancef intravenously en rout e to the operative suite. In the OR, general endotracheal anesthesia was administered. Appropriate time-out procedure was carried out. Attention was turned to the right knee, which was sterilely prep ped and draped in the usual fashion. An anterior midline incision was made after exsanguination of t he limb and tourniquet inflation to 275 mmHg. Thick subcutaneous flaps were elevated, followed by me dial parapatellar arthrotomy. There was tricompartmental arthritis. The decision was made to procee d with a total knee replacement. Therefore, separate percutaneous incisions were made in the mid fem ur and mid deras. The 2 guide pins in each area were placed, and the tibial and femoral reference arr ays were affixed. A femoral check point and tibial check point were entered. The bony landmarks wer e then entered into the computer. All reference points were then entered into the computer in standa rd fashion. The knee was taken through flexion and extension, and appropriate positioning. Adjustme nts made to balance the knee through the flexion/extension arc. Using the MAKOplasty robot, the cuts to the femur and tibia were made, and the bony fragments were withdrawn. A size 5 femur was selecte d and the estimator paperboard boxes for the femur was then pinned and the box cut made. Trial reduction with the fe mur revealed appropriate position. Attention was then turned to the tibia. The size 5 tray was pinn ed in the correct orientation and central fins cut. A trial reduction over a 9 and then 11 mm thickn ess bearing revealed full flexion and extension without instability throughout the flexion/extension arc. The patella was then everted and cut in a freehand cutting technique. Drill holes were made fo r an asymmetric A38 size patella. All trial components were withdrawn. The surfaces were thoroughly irrigated and dried with a pulsatile lavage solution. In a sequential fashion, the tibial, femoral, and patellar components were then cemented. An 11 mm spacer was then placed and confirmed to be ful ly seated. All marginal cement had been withdrawn. The capsule and soft tissue were instilled with a joint cocktail of ropivacaine, morphine, Toradol, and epinephrine. The wound was copiously irrigat ed. The medial parapatellar arthrotomy closed with the knee in 20 degrees of flexion with #1 Ethibon d suture, and the knee instilled with a platelet-rich plasma solution. The subcutaneous tissue was c losed using a Quill-type Monocryl suture and abimbola. The margins were well approximated. A sterile dressing was applied. The patient was awakened, extubated, and taken to the recovery in good and st able condition. TOTAL TOURNIQUET TIME: 70 minutes. COMPLICATIONS: None. IMPLANTS: The Areli Triathlon PS femoral knee, size 5, a size 5 tibial base plate, a Trident X3 ti bial insert 5 x 11 mm thick, a triathlon X3 asymmetric patella size A38. DISPOSITION: To the recovery room then the floor. She will follow standard total knee recovery. /[id number]/MODL
== END 2017-04-27 14:48 | DRG 470 ==
LOC: F3N 08:50
PROVIDERS: ADMIT Orthopaedic Surgery; ATTEND Orthopaedic Surgery
PROC: 8E0Y0CZ Robotic Assisted Procedure of Lower Extremity, Open Approach (ICD-10-PCS; principal; 2017-04-25 11:15)
PROC: 0SRC0J9 Replacement of Right Knee Joint with Synthetic Substitute, Cemented, Open Approach (ICD-10-PCS; principal; 2017-04-25 11:15)
DX: M17.11 Unilateral primary osteoarthritis, right knee (principal); Z89.612 Acquired absence of left leg above knee
CPT/HCPCS: 97110-GP; 97162-GP; 97166-GO; 97535-GO; C1713; J0171; J0690; J1100; J1170; J1885; J2250; J2405; J2704; J2795

== ENCOUNTER 2017-04-27 15:18 | Inpatient (IN) | payer MEDICAID ==
[2017-04-27] MEDS ORDERED: DIAZEPAM 5 MG TAB PO PRN (16:00)
[2017-04-27] MEDS ORDERED: SENNOSIDES 1 TAB PO PRN (16:00)
--- NOTE | 2017-04-27 16:48 | PDOREHIP ---
Admission [facility] - Admission - 3 Day Assessment Period Admission Date/Day 1: 04/27/17 Day 2: 04/28/17 Day 3: 04/29/17 - Active Diagnoses Comorbidities and Co-existing Conditions at Admission: 09833. None of the Above - Skin Conditions Unhealed Pressure Ulcer (1 or more/Stage 1 or >)-Admission: 0. No
--- NOTE | 2017-04-27 16:48 | PDOREHIP ---
Admission [facility] - Admission - 3 Day Assessment Period Admission Date/Day 1: 04/27/17 Day 2: 04/28/17 Day 3: 04/29/17 - Active Diagnoses Comorbidities and Co-existing Conditions at Admission: 54771. None of the Above - Skin Conditions Unhealed Pressure Ulcer (1 or more/Stage 1 or >)-Admission: 0. No
--- NOTE | 2017-04-27 16:48 | PDOREHIP ---
Admission [facility] - Admission - 3 Day Assessment Period Admission Date/Day 1: 04/27/17 Day 2: 04/28/17 Day 3: 04/29/17 - Active Diagnoses Comorbidities and Co-existing Conditions at Admission: 74905. None of the Above - Skin Conditions Unhealed Pressure Ulcer (1 or more/Stage 1 or >)-Admission: 0. No
[2017-04-27] MEDS: POLYETHYLENE GLYCOL 3350 17 GM PKT PO SCH (17:36)
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
[2017-04-27] MEDS: ACETAMINOPHEN 500 MG TAB PO SCH (20:24)
[2017-04-27] MEDS: SENNOSIDES 1 TAB PO SCH (20:24)
[2017-04-28] MEDS: ACETAMINOPHEN 500 MG TAB PO SCH ×3 (05:12→21:25)
[2017-04-28] MEDS: BISACODYL 10 MG SUPP PR PRN (05:25)
[2017-04-28] MEDS: POLYETHYLENE GLYCOL 3350 17 GM PKT PO SCH (08:26)
[2017-04-28] MEDS: SENNOSIDES 1 TAB PO SCH ×2 (08:26→21:26)
[2017-04-28] MEDS ORDERED: ASPIRIN 325 MG TAB PO SCH (09:00)
[2017-04-28] MEDS: morphINE SR 15 MG TAB PO SCH (09:53)
--- NOTE | 2017-04-28 12:01 | SOAPPROG ---
SOAP Progress Note Assessment/Plan: Assessment: * Status post right total knee [id number]/23/17 in an obese woman with history of left zthyb-dlt-bazf amputation and a prosthetic leg. PT and OT to optimize activities of daily living and mobility with the goal of being able to return to home with modified independence. She will need to be able to climb stairs. * Pain management. Adequate control with sustained release morphine 15 mg during the daytime and oxycodone 5-10 mg q.3 hours p.r.n., has not used oxycodone today 04/28/17. Continue acetaminophen scheduled at 1000 mg q.8 hours. * Obesity with weight gain due to reduced activity over a period of years. She will have a consult with the dietitian. * Constipation. Responding to bowel protocol. Continue senna 2 tabs scheduled b.i.d. and polyethylene glycol 17 g p.o. q. day starting today. Bisacodyl suppository as well as an enema are available. * Prophylaxis. She has some increased risk for deep venous thrombosis given reduced mobility and obesity. Will discontinue aspirin and initiate enoxaparin 04/28/2017. Continue enoxaparin until mobility is considerably improved. FOLLOWUP: She will follow up with her primary care provider, Dr. Teofilo Dawkins , after her discharge. Will discuss with Dr. Mejia's office when she should follow up with Orthopedics and whether abimbola can be removed during her rehabilitation stay. 04/28/17 13:59 Subjective: Concerned re knee feeling warm. Pain adequately controlled, participating in therapies. Walked with crutches to PT gym, and then to OT room. Slept well. No fevers/chills. Objective: Vital Signs Temp Pulse Resp BP Pulse Ox 36.7 C 86 17 112/70 95 04/28/17 08:00 04/28/17 08:00 04/28/17 08:00 04/28/17 08:00 04/28/17 08:00 04/27/17 04/28/17 04/29/17 05:59 05:59 05:59 Intake Total 500 Output Total 1750 Balance -1250 Physical Exam - Physical Exam General Appearance: WD/WN, alert, no apparent distress, obese Respiratory: No respiratory distress, No accessory muscle use Skin: normal color, warm/dry, other (R leg incisions C/D/I, stapled. No erythema. Minimal serous exudate on bandages.) Extremities: other (2+ edema RLE) Neuro/Psych: no motor/sensory deficits, alert, normal mood/affect, oriented x 3 ICD10 Worksheet Patient Problems: Problems Problem Status Onset Chest pain Acute
[2017-04-28] MEDS ORDERED: ENOXAPARIN 40 MG/0.4 ML SYR SC SCH (15:17)
[2017-04-28] MEDS: ENOXAPARIN 40 MG/0.4 ML SYR SC SCH (16:37)
[2017-04-28] MEDS: oxyCODONE IR 5 MG TAB PO PRN ×2 (20:15→22:43)
[2017-04-28] MEDS ORDERED: oxyCODONE IR 5 MG TAB PO ONE (23:00)
[2017-04-29] MEDS: oxyCODONE IR 5 MG TAB PO PRN ×5 (02:14→23:20)
[2017-04-29] MEDS: ACETAMINOPHEN 500 MG TAB PO SCH ×3 (06:21→22:13)
[2017-04-29 07:45] LABS: PLATELET COUNT 301 10^3/uL (150-400)
[2017-04-29] MEDS: morphINE SR 15 MG TAB PO SCH ×2 (08:37→20:44)
[2017-04-29] MEDS: POLYETHYLENE GLYCOL 3350 17 GM PKT PO SCH (08:37)
[2017-04-29] MEDS: ENOXAPARIN 40 MG/0.4 ML SYR SC SCH (08:37)
[2017-04-29] MEDS: SENNOSIDES 1 TAB PO SCH ×2 (08:37→20:44)
[2017-04-29] MEDS ORDERED: ENOXAPARIN 40 MG/0.4 ML SYR SC SCH (09:00)
--- NOTE | 2017-04-29 10:27 | SOAPPROG ---
SOAP Progress Note Assessment/Plan: Assessment: * Status post right total knee [id number]/23/17 in an obese woman with history of left ofjmv-low-gkbk amputation and a prosthetic leg. Initial functional independence measure of 91. She has ascended 1 step with crutches. She has ambulated 150 feet with crutches and standby assist. She needs raise surfaces to arise from seated. Shower transfer contact guard assist to raise seat. Needed minimal assistance to wash her right foot. Upper body dressing is independent lower body requires minimal assistance for her sock and shoe on the right foot. Toilet transfer is standby assist to raised seat. Continue PT and OT to optimize activities of daily living and mobility with the goal of being able to return to home with modified independence. She will need to be able to climb stairs. * Pain management. Add morphine SR at HS as well as in the morning starting . Continue oxycodone 5-10 mg q.3 hours p.r.n. Continue acetaminophen scheduled at 1000 mg q.8 hours. * Obesity with weight gain due to reduced activity over a period of years. She will have a consult with the dietitian. * Constipation. Responding to bowel protocol. Continue senna 2 tabs scheduled b.i.d. and polyethylene glycol 17 g p.o. q. day starting today. Bisacodyl suppository as well as an enema are available. * Prophylaxis. She has some increased risk for deep venous thrombosis given reduced mobility and obesity. Will discontinue aspirin and initiate enoxaparin 04/28/2017. Continue enoxaparin until mobility is considerably improved. Attended staffing, 15 minutes. Discussed with case management, dietitian, nursing, PT, OT. He has multiple steps in the house and steps to enter the house. Her goal is to be fully independent with mobility and ADLs. Set tentative discharge date of 05/06/2017. FOLLOWUP: She will follow up with her primary care provider, Dr. Teofilo Dawkins , after her discharge. Follow-up with Dr. Mejia's office 05/11/2017 at which time abimbola will be removed. 04/29/17 10:27 Subjective: Increased pain overnight. Used oxycodone 3 times between bedtime and arising in the morning. Knee felt hot and swollen last night and she was worried about infection but she was reassured by the normal white blood cell count. Otherwise doing well, no cough or dyspnea, no calf pain, no fevers or chills. Objective: Vital Signs Temp Pulse Resp BP Pulse Ox 36.8 C 95 16 103/64 95 04/29/17 08:00 04/29/17 08:00 04/29/17 08:00 04/29/17 08:00 04/29/17 08:00 Laboratory Results 04/29/17 06:30 04/28/17 04/29/17 04/30/17 05:59 05:59 05:59 Intake Total 500 740 Output Total 1750 Balance -1250 740 - Time Spent With Patient Time Spent With Patient: Greater than 35 minute floor time today, including more than 50% of time in coordination of care during staffing meeting, and counseling patient. Physical Exam - Physical Exam General Appearance: WD/WN, alert, no apparent distress, obese Respiratory: No respiratory distress, No accessory muscle use Cardiac/Chest: edema (2+ right lower leg.) Skin: normal color, warm/dry, other (Minimal serous exudate on bandages over incisions..) Extremities: No calf tenderness Neuro/Psych: no motor/sensory deficits, alert, normal mood/affect, oriented x 3 ICD10 Worksheet Patient Problems: Problems Problem Status Onset Chest pain Acute
[2017-04-30] MEDS: oxyCODONE IR 5 MG TAB PO PRN ×4 (02:02→21:17)
[2017-04-30] MEDS: ACETAMINOPHEN 500 MG TAB PO SCH ×3 (05:09→21:16)
[2017-04-30] MEDS: POLYETHYLENE GLYCOL 3350 17 GM PKT PO SCH (08:28)
[2017-04-30] MEDS: ENOXAPARIN 40 MG/0.4 ML SYR SC SCH (08:28)
[2017-04-30] MEDS: morphINE SR 15 MG TAB PO SCH ×2 (08:28→18:37)
[2017-04-30] MEDS: SENNOSIDES 1 TAB PO SCH ×2 (08:28→21:16)
--- NOTE | 2017-04-30 14:50 | SOAPPROG ---
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 Initial functional independence measure of 91. She has ascended 1 step with crutches. She has ambulated 150 feet with crutches and standby assist. She needs raise surfaces to arise from seated. Shower transfer contact guard assist to raise seat. Needed minimal assistance to wash her right foot. Upper body dressing is independent lower body requires minimal assistance for her sock and shoe on the right foot. Toilet transfer is standby assist to raised seat. Continue PT and OT to optimize activities of daily living and mobility with the goal of being able to return to home with modified independence. She will need to be able to climb stairs. * Pain management. Add morphine SR at HS as well as in the morning starting . Continue oxycodone 5-10 mg q.3 hours p.r.n. Continue acetaminophen scheduled at 1000 mg q.8 hours. PAIN CONTROL IS BETTER AT NIGHT WITH MS CONTIN * Obesity with weight gain due to reduced activity over a period of years. She will have a consult with the dietitian. * Constipation. Responding to bowel protocol. Continue senna 2 tabs scheduled b.i.d. and polyethylene glycol 17 g p.o. q. day starting today. Bisacodyl suppository as well as an enema are available. * Prophylaxis. She has some increased risk for deep venous thrombosis given reduced mobility and obesity. Will discontinue aspirin and initiate enoxaparin 04/28/2017. Continue enoxaparin until mobility is considerably improved. * Plan: 04/30/17 14:46 Subjective: Pain is better at night Objective: Vital Signs Temp Pulse Resp BP Pulse Ox 36.5 C 87 18 102/55 L 96 04/30/17 06:55 04/30/17 06:55 04/30/17 06:55 04/30/17 06:55 04/30/17 06:55 Laboratory Results 04/29/17 06:30 04/29/17 04/30/17 05/01/17 05:59 05:59 05:59 Intake Total 740 2700 240 Output Total 1 Balance 740 2699 240 Physical Exam - Physical Exam General Appearance: alert, no apparent distress Respiratory: No respiratory distress Extremities: other (Right leg with mild swelling) Neuro/Psych: alert, normal mood/affect, oriented x 3 ICD10 Worksheet Patient Problems: Problems Problem Status Onset Chest pain Acute
[2017-04-30] MEDS: BISACODYL 10 MG SUPP PR PRN (16:25)
[2017-05-01] MEDS: oxyCODONE IR 5 MG TAB PO PRN ×2 (00:14→01:16)
[2017-05-01] MEDS: morphINE SR 15 MG TAB PO SCH (07:14)
[2017-05-01] MEDS: ACETAMINOPHEN 500 MG TAB PO SCH ×3 (07:14→21:07)
[2017-05-01] MEDS: ENOXAPARIN 40 MG/0.4 ML SYR SC SCH (09:08)
[2017-05-01] MEDS: POLYETHYLENE GLYCOL 3350 17 GM PKT PO SCH (09:08)
[2017-05-01] MEDS: SENNOSIDES 1 TAB PO SCH ×2 (09:08→21:03)
--- NOTE | 2017-05-01 11:49 | SOAPPROG ---
SOAP Progress Note Assessment/Plan: Assessment: Status post right total knee [id number]/23/17 in an obese woman with history of left njlxz-xdp-jnfh amputation and a prosthetic leg. Initial functional independence measure of 91. She has ascended 1 step with crutches. She has ambulated 150 feet with crutches and standby assist. She needs raise surfaces to arise from seated. Shower transfer contact guard assist to raise seat. Needed minimal assistance to wash her right foot. Upper body dressing is independent lower body requires minimal assistance for her sock and shoe on the right foot. Toilet transfer is standby assist to raised seat. Continue PT and OT to optimize activities of daily living and mobility with the goal of being able to return to home with modified independence. She will need to be able to climb stairs. * Pain management. Add morphine SR at HS as well as in the morning starting . Continue oxycodone 5-10 mg q.3 hours p.r.n. Continue acetaminophen scheduled at 1000 mg q.8 hours. STILL REQUIRING SIGNIFICANT DOSES OF OXYCODONE AT NIGHT. WILL INCREASE MS CONTIN TO 30 AT NIGHT * Obesity with weight gain due to reduced activity over a period of years. She will have a consult with the dietitian. * Constipation. Responding to bowel protocol. Continue senna 2 tabs scheduled b.i.d. and polyethylene glycol 17 g p.o. q. day starting today. Bisacodyl suppository as well as an enema are available. * Prophylaxis. She has some increased risk for deep venous thrombosis given reduced mobility and obesity. Will discontinue aspirin and initiate enoxaparin 04/28/2017. Continue enoxaparin until mobility is considerably improved. * Plan: 04/30/17 14:46 05/01/17 11:47 Subjective: HAD FAIR AMOUNT OF PAIN LAST NIGHT REQUIRED SEVERAL DOSES OF OXYCODONE Objective: Vital Signs Temp Pulse Resp BP Pulse Ox 36.6 C 88 17 111/66 96 05/01/17 07:34 05/01/17 08:28 05/01/17 08:28 05/01/17 08:28 05/01/17 08:28 Laboratory Results 04/29/17 06:30 04/30/17 05/01/17 05/02/17 05:59 05:59 05:59 Intake Total 2700 1740 240 Output Total 1 Balance 2699 1745 240 Physical Exam - Physical Exam General Appearance: alert, no apparent distress Respiratory: No respiratory distress Extremities: other (RIGHT KNEE EDEMA) Neuro/Psych: alert, normal mood/affect, oriented x 3 ICD10 Worksheet Patient Problems: Problems Problem Status Onset Chest pain Acute
--- NOTE | 2017-05-01 11:49 | SOAPPROG ---
SOAP Progress Note Assessment/Plan: Assessment: Status post right total knee [id number]/23/17 in an obese woman with history of left iumay-jgl-pgev amputation and a prosthetic leg. Initial functional independence measure of 91. She has ascended 1 step with crutches. She has ambulated 150 feet with crutches and standby assist. She needs raise surfaces to arise from seated. Shower transfer contact guard assist to raise seat. Needed minimal assistance to wash her right foot. Upper body dressing is independent lower body requires minimal assistance for her sock and shoe on the right foot. Toilet transfer is standby assist to raised seat. Continue PT and OT to optimize activities of daily living and mobility with the goal of being able to return to home with modified independence. She will need to be able to climb stairs. * Pain management. Add morphine SR at HS as well as in the morning starting . Continue oxycodone 5-10 mg q.3 hours p.r.n. Continue acetaminophen scheduled at 1000 mg q.8 hours. STILL REQUIRING SIGNIFICANT DOSES OF OXYCODONE AT NIGHT. WILL INCREASE MS CONTIN TO 30 AT NIGHT * Obesity with weight gain due to reduced activity over a period of years. She will have a consult with the dietitian. * Constipation. Responding to bowel protocol. Continue senna 2 tabs scheduled b.i.d. and polyethylene glycol 17 g p.o. q. day starting today. Bisacodyl suppository as well as an enema are available. * Prophylaxis. She has some increased risk for deep venous thrombosis given reduced mobility and obesity. Will discontinue aspirin and initiate enoxaparin 04/28/2017. Continue enoxaparin until mobility is considerably improved. * Plan: 04/30/17 14:46 05/01/17 11:47 Subjective: HAD FAIR AMOUNT OF PAIN LAST NIGHT REQUIRED SEVERAL DOSES OF OXYCODONE Objective: Vital Signs Temp Pulse Resp BP Pulse Ox 36.6 C 88 17 111/66 96 05/01/17 07:34 05/01/17 08:28 05/01/17 08:28 05/01/17 08:28 05/01/17 08:28 Laboratory Results 04/29/17 06:30 04/30/17 05/01/17 05/02/17 05:59 05:59 05:59 Intake Total 2700 1740 240 Output Total 1 Balance 2699 1749 240 Physical Exam - Physical Exam General Appearance: alert, no apparent distress Respiratory: No respiratory distress Extremities: other (RIGHT KNEE EDEMA) Neuro/Psych: alert, normal mood/affect, oriented x 3 ICD10 Worksheet Patient Problems: Problems Problem Status Onset Chest pain Acute
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
[2017-05-01] MEDS ORDERED: morphINE SR 30 MG TAB PO SCH (21:00)
[2017-05-02] MEDS: ACETAMINOPHEN 500 MG TAB PO SCH ×3 (06:15→21:50)
[2017-05-02] MEDS: oxyCODONE IR 5 MG TAB PO PRN ×2 (06:38→16:30)
[2017-05-02] MEDS ORDERED: morphINE SR 15 MG TAB PO SCH (09:00)
[2017-05-02] MEDS: SENNOSIDES 1 TAB PO SCH ×2 (09:20→21:51)
[2017-05-02] MEDS: POLYETHYLENE GLYCOL 3350 17 GM PKT PO SCH (09:20)
[2017-05-02] MEDS: ENOXAPARIN 40 MG/0.4 ML SYR SC SCH (09:21)
--- NOTE | 2017-05-02 12:37 | SOAPPROG ---
SOAP Progress Note Assessment/Plan: Assessment: Status post right total knee [id number]/23/17 in an obese woman with history of left abfch-afn-siss amputation and a prosthetic leg. I * nitial functional independence measure of 91. She has ascended 1 step with crutches. She has ambulated 150 feet with crutches and standby assist. She needs raised surfaces to arise from seated. Shower transfer contact guard assist to raise seat. Needed minimal assistance to wash her right foot. Upper body dressing is independent lower body requires minimal assistance for her sock and shoe on the right foot. Toilet transfer is standby assist to raised seat. * Continue PT and OT to optimize activities of daily living and mobility with the goal of being able to return to home with modified independence. She will need to be able to climb stairs. Pain management. * Resume morphine SR at HS as well as in the morning starting 04/29/2017. Continue oxycodone 5-10 mg q.3 hours p.r.n. Continue acetaminophen scheduled at 1000 mg q.8 hours. Obesity with weight gain due to reduced activity over a period of years. She will have a consult with the dietitian. Constipation. Responding to bowel protocol. * Continue senna 2 tabs scheduled b.i.d. and polyethylene glycol 17 g p.o. q. day starting today. Bisacodyl suppository as well as an enema are available. Prophylaxis. Ambulating 150 feet multiple times per day. Will discontinue enoxaparin 05/03/2017. Resume ASA until 2 weeks post-surgery. She has multiple steps in the house and steps to enter the house. Her goal is to be fully independent with mobility and ADLs. Tentative discharge date of 05/06/2017. FOLLOWUP: She will follow up with her primary care provider, Dr. Teofilo Dawkins , after her discharge. Follow-up with Dr. Mejia's office 05/11/2017 at which time abimbola will be removed. 05/02/17 12:34 Subjective: Morphine SR was increased to 30 mg from 15 mg last night. Patient reports she did not like the effect. She still had pain. She requests reducing the dose back to 15 mg at HS. She will make up the gap with p.r.n. oxycodone. Otherwise without complaints. Per staff ambulating several times per day. Objective: Vital Signs Temp Pulse Resp BP Pulse Ox 36.5 C 75 16 129/67 H 96 05/02/17 08:00 05/02/17 08:00 05/02/17 08:00 05/02/17 08:00 05/02/17 08:00 Laboratory Results 04/29/17 06:30 05/01/17 05/02/17 05/03/17 05:59 05:59 05:59 Intake Total 1740 3140 1999 Balance 1740 3140 1999 Physical Exam - Physical Exam General Appearance: WD/WN, alert, no apparent distress Respiratory: No respiratory distress, No accessory muscle use Cardiac/Chest: edema (1+ right lower extremity pretibial.) Skin: normal color, warm/dry Neuro/Psych: no motor/sensory deficits, alert, normal mood/affect, oriented x 3 ICD10 Worksheet Patient Problems: Problems Problem Status Onset Chest pain Acute
[2017-05-02] MEDS: morphINE SR 15 MG TAB PO SCH (21:50)
[2017-05-03] MEDS: oxyCODONE IR 5 MG TAB PO PRN ×6 (00:22→22:04)
[2017-05-03] MEDS: ACETAMINOPHEN 500 MG TAB PO SCH ×3 (06:24→22:05)
[2017-05-03] MEDS: morphINE SR 15 MG TAB PO SCH ×2 (08:45→22:05)
[2017-05-03] MEDS: SENNOSIDES 1 TAB PO SCH ×2 (08:45→22:11)
[2017-05-03] MEDS: ASPIRIN 81 MG CHEWABLE TAB PO SCH (08:45)
[2017-05-03] MEDS: POLYETHYLENE GLYCOL 3350 17 GM PKT PO SCH (08:45)
--- NOTE | 2017-05-03 14:06 | SOAPPROG ---
SOAP Progress Note Assessment/Plan: Assessment: Status post right total knee [id number]/23/17 in an obese woman with history of left lwsgm-zqd-wdrk amputation and a prosthetic leg. * Initial functional independence measure of 91 on 04/29/2017. She has ascended 1 step with crutches and is working on ascending and descending more steps. She has ambulated 150 feet with crutches and standby assist. She needs raised surfaces to arise from seated. Shower transfer contact guard assist to raise seat. Needed minimal assistance to wash her right foot. Upper body dressing is independent, lower body requires minimal assistance for her sock and shoe on the right foot. Toilet transfer is standby assist to raised seat. * Continue PT and OT to optimize activities of daily living and mobility with the goal of being able to return to home with modified independence. She will need to be able to climb stairs. Pain management. * Resume morphine SR at HS as well as in the morning starting 04/29/2017. Continue oxycodone 5-10 mg q.3 hours p.r.n. Continue acetaminophen scheduled at 1000 mg q.8 hours. Obesity with weight gain due to reduced activity over a period of years. She will have a consult with the dietitian. Constipation. Responding to bowel protocol. * Continue senna 2 tabs scheduled b.i.d. and polyethylene glycol 17 g p.o. q. day starting today. Bisacodyl suppository as well as an enema are available. Prophylaxis. Ambulating 150 feet multiple times per day. Will discontinue enoxaparin 05/03/2017. Resume ASA until 2 weeks post-surgery. She has multiple steps in the house and steps to enter the house. Her goal is to be fully independent with mobility and ADLs. Tentative discharge date of 05/06/2017. FOLLOWUP: She will follow up with her primary care provider, Dr. Teofilo Dawkins , after her discharge. Follow-up with Dr. Mejia's office 05/11/2017 at which time abimbola will be removed. 05/03/17 14:06 Subjective: Had increased pain over the distal quadriceps tendon, the patella and the patellar tendon with descending stairs and with arising from a low surface. She says she and physical therapy tried descending faster and spending less time bearing weight in a partially been position and that this was less painful. Otherwise she is satisfied with current pain control. She thinks she will do better if she takes 10 mg of oxycodone rather than 5 prior to physical therapy. Bowels are moving. No fevers or chills, no cough or dyspnea. No tenderness along the incision. Objective: Vital Signs Temp Pulse Resp BP Pulse Ox 97.4 C H 84 16 106/64 94 05/03/17 06:34 05/03/17 06:34 05/03/17 06:34 05/03/17 06:34 05/03/17 06:34 Laboratory Results 04/29/17 06:30 05/02/17 05/03/17 05/04/17 05:59 05:59 05:59 Intake Total 3140 4400 400 Balance 3140 4400 400 Physical Exam - Physical Exam General Appearance: WD/WN, alert, no apparent distress Respiratory: No respiratory distress, No accessory muscle use Cardiac/Chest: edema (Trace to 1+ right pretibial.) Skin: normal color, warm/dry Neuro/Psych: no motor/sensory deficits, alert, normal mood/affect, oriented x 3 , other (Observed ambulating in the rae with crutches, step through pattern.) ICD10 Worksheet Patient Problems: Problems Problem Status Onset Chest pain Acute
[2017-05-04] MEDS: oxyCODONE IR 5 MG TAB PO PRN ×6 (01:24→22:04)
[2017-05-04] MEDS: ACETAMINOPHEN 500 MG TAB PO SCH ×3 (04:46→22:03)
[2017-05-04] MEDS: morphINE SR 15 MG TAB PO SCH ×3 (09:49→22:04)
[2017-05-04] MEDS: ASPIRIN 81 MG CHEWABLE TAB PO SCH (09:49)
[2017-05-04] MEDS: SENNOSIDES 1 TAB PO SCH ×2 (09:49→22:04)
[2017-05-04] MEDS: POLYETHYLENE GLYCOL 3350 17 GM PKT PO SCH (09:50)
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
[2017-05-04] MEDS ORDERED: morphINE SR 15 MG TAB PO SCH (14:00)
[2017-05-05] MEDS: oxyCODONE IR 5 MG TAB PO PRN ×4 (02:38→21:53)
[2017-05-05] MEDS: ACETAMINOPHEN 500 MG TAB PO SCH ×3 (07:28→21:54)
[2017-05-05] MEDS: ASPIRIN 81 MG CHEWABLE TAB PO SCH (07:28)
[2017-05-05] MEDS: morphINE SR 15 MG TAB PO SCH ×3 (07:29→21:53)
[2017-05-05] MEDS: POLYETHYLENE GLYCOL 3350 17 GM PKT PO SCH (07:29)
[2017-05-05] MEDS: SENNOSIDES 1 TAB PO SCH ×2 (07:29→21:53)
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
[2017-05-06] MEDS: oxyCODONE IR 5 MG TAB PO PRN ×2 (03:12→11:35)
[2017-05-06] MEDS: ACETAMINOPHEN 500 MG TAB PO SCH ×3 (06:23→22:00)
[2017-05-06] MEDS: morphINE SR 15 MG TAB PO SCH ×3 (06:29→22:00)
[2017-05-06] MEDS: ASPIRIN 81 MG CHEWABLE TAB PO SCH (08:35)
[2017-05-06] MEDS: POLYETHYLENE GLYCOL 3350 17 GM PKT PO SCH (08:35)
[2017-05-06] MEDS: SENNOSIDES 1 TAB PO SCH ×2 (08:35→22:00)
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
[2017-05-06] MEDS ORDERED: ASPIRIN 81 MG CHEWABLE TAB PO SCH (14:56)
[2017-05-07] MEDS: oxyCODONE IR 5 MG TAB PO PRN (04:21)
[2017-05-07] MEDS: ACETAMINOPHEN 500 MG TAB PO SCH ×3 (06:29→22:00)
[2017-05-07] MEDS: morphINE SR 15 MG TAB PO SCH ×3 (06:29→22:00)
[2017-05-07] MEDS: ASPIRIN 325 MG TAB PO SCH (08:34)
[2017-05-07] MEDS: POLYETHYLENE GLYCOL 3350 17 GM PKT PO SCH (08:34)
[2017-05-07] MEDS: SENNOSIDES 1 TAB PO SCH ×2 (08:34→22:02)
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
[2017-05-08] MEDS: ACETAMINOPHEN 500 MG TAB PO SCH ×3 (06:11→21:59)
[2017-05-08] MEDS: morphINE SR 15 MG TAB PO SCH ×3 (06:12→22:00)
[2017-05-08] MEDS: POLYETHYLENE GLYCOL 3350 17 GM PKT PO SCH (07:44)
[2017-05-08] MEDS: ASPIRIN 325 MG TAB PO SCH (07:44)
[2017-05-08] MEDS: SENNOSIDES 1 TAB PO SCH ×2 (07:44→22:00)
[2017-05-08] MEDS: oxyCODONE IR 5 MG TAB PO PRN ×4 (08:27→23:40)
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
[2017-05-09] MEDS: ACETAMINOPHEN 500 MG TAB PO SCH ×3 (05:25→20:50)
[2017-05-09] MEDS: morphINE SR 15 MG TAB PO SCH ×3 (07:54→20:52)
[2017-05-09] MEDS: ASPIRIN 325 MG TAB PO SCH (07:56)
[2017-05-09] MEDS: POLYETHYLENE GLYCOL 3350 17 GM PKT PO SCH (10:11)
[2017-05-09] MEDS: SENNOSIDES 1 TAB PO SCH ×2 (10:18→20:52)
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
[2017-05-09] MEDS ORDERED: traMADol 50 MG TAB PO PRN (12:02)
[2017-05-09] MEDS: traMADol 50 MG TAB PO SCH (20:52)
[2017-05-10] MEDS: traMADol 50 MG TAB PO PRN (01:55)
[2017-05-10] MEDS: ACETAMINOPHEN 500 MG TAB PO SCH ×3 (04:54→21:24)
[2017-05-10] MEDS: morphINE SR 15 MG TAB PO SCH ×4 (04:55→21:24)
[2017-05-10] MEDS: ASPIRIN 325 MG TAB PO SCH (08:23)
[2017-05-10] MEDS: POLYETHYLENE GLYCOL 3350 17 GM PKT PO SCH (08:24)
[2017-05-10] MEDS: SENNOSIDES 1 TAB PO SCH ×2 (08:24→21:23)
--- NOTE | 2017-05-10 18:03 | SOAPPROG ---
SOAP Progress Note Assessment/Plan: Assessment: Status post right total knee [id number]/23/17 in an obese woman with history of left ewunv-boy-rktx amputation and a prosthetic leg. * Initial functional independence measure of 91 on 04/29/2017; improved to 100 on 05/04/2017 and to 119 as of 05/10/2017.. She is independent in her room during the day. She ambulated 300 feet with crutches. She did a car transfer with standby assist. She has negotiated 6 stairs with bilateral crutches. She is independent with her ADLs. She has transferred from a 17 inch height. * Successful outing to [facility] 05/06/2017. She is able to use shower seat at the [facility] and arise independently from it. * She has met all therapy goals. Pain management. * Continue morphine SR 15 mg three times daily starting 05/04/2017. Continue oxycodone 5-10 mg q.3 hours p.r.n. continue tramadol 50 mg scheduled at HS and 50 mg q.4 hours p.r.n., beginning 05/09/2017. Continue acetaminophen scheduled at 1000 mg q.8 hours. Obesity with weight gain due to reduced activity over a period of years. Consult with the dietitian. Constipation. Responding to bowel protocol. * Continue senna 2 tabs scheduled b.i.d. and polyethylene glycol 17 g p.o. q. day starting today. Bisacodyl suppository as well as an enema are available. Prophylaxis. Ambulating 150 feet multiple times per day. Will discontinue enoxaparin 05/03/2017. Resume ASA until 2 weeks post-surgery. No need for ÁNGEL hose. Attended staffing, 15 minutes. Discussed with case management, nursing, PT, OT. She has met all rehabilitation goals including being able to transfer from a 17 inch height. She will be bathing at the [facility] where the handicapped shower seat is 17 inches high. Final barrier to discharge is obtaining a bedside commode for the home. Will discharge home tomorrow, 05/11/2017. 30 minutes conversation was had with patient and case management regarding barrier to discharge and plan to discharge tomorrow. FOLLOWUP: She will follow up with her primary care provider, Dr. Teofilo Dawkins , after her discharge. Follow-up with Dr. Mejia's office 05/11/2017 at which time abimbola will be removed. 05/10/17 17:58 Subjective: Unhappy about planned discharge home tomorrow. Otherwise without any specific complaints. Pain is well controlled. She felt less groggy on tramadol last night rather than oxycodone. Objective: Vital Signs Temp Pulse Resp BP Pulse Ox 36.6 C 74 17 102/54 L 93 05/10/17 05:22 05/10/17 05:22 05/10/17 05:22 05/10/17 05:22 05/10/17 05:22 Laboratory Results 04/29/17 06:30 05/09/17 05/10/17 05/11/17 05:59 05:59 05:59 Intake Total 2320 2040 1000 Balance 2320 2040 1000 - Time Spent With Patient Time Spent With Patient: Greater than 35 minutes floor time today, including more than 50% of time in coordination of care during staffing meeting, and counseling patient. Physical Exam - Physical Exam General Appearance: WD/WN, alert, no apparent distress, obese Respiratory: No respiratory distress, No accessory muscle use Cardiac/Chest: edema (1+ right lower extremity.) Skin: normal color, warm/dry Neuro/Psych: no motor/sensory deficits, alert, normal mood/affect, oriented x 3 ICD10 Worksheet Patient Problems: Problems Problem Status Onset Chest pain Acute
--- NOTE | 2017-05-10 18:03 | SOAPPROG ---
SOAP Progress Note Assessment/Plan: Assessment: Status post right total knee /23/17 in an obese woman with history of left xtokj-vet-rjra amputation and a prosthetic leg. * Initial functional independence measure of 91 on 04/29/2017; improved to 100 on 05/04/2017 and to 119 as of 05/10/2017.. She is independent in her room during the day. She ambulated 300 feet with crutches. She did a car transfer with standby assist. She has negotiated 6 stairs with bilateral crutches. She is independent with her ADLs. She has transferred from a 17 inch height. * Successful outing to [facility] 05/06/2017. She is able to use shower seat at the [facility] and arise independently from it. * She has met all therapy goals. Pain management. * Continue morphine SR 15 mg three times daily starting 05/04/2017. Continue oxycodone 5-10 mg q.3 hours p.r.n. continue tramadol 50 mg scheduled at HS and 50 mg q.4 hours p.r.n., beginning 05/09/2017. Continue acetaminophen scheduled at 1000 mg q.8 hours. Obesity with weight gain due to reduced activity over a period of years. Consult with the dietitian. Constipation. Responding to bowel protocol. * Continue senna 2 tabs scheduled b.i.d. and polyethylene glycol 17 g p.o. q. day starting today. Bisacodyl suppository as well as an enema are available. Prophylaxis. Ambulating 150 feet multiple times per day. Will discontinue enoxaparin 05/03/2017. Resume ASA until 2 weeks post-surgery. No need for ÁNGEL hose. Attended staffing, 15 minutes. Discussed with case management, nursing, PT, OT. She has met all rehabilitation goals including being able to transfer from a 17 inch height. She will be bathing at the [facility] where the handicapped shower seat is 17 inches high. Final barrier to discharge is obtaining a bedside commode for the home. Will discharge home tomorrow, 05/11/2017. 30 minutes conversation was had with patient and case management regarding barrier to discharge and plan to discharge tomorrow. FOLLOWUP: She will follow up with her primary care provider, Dr. Teofilo Dawkins , after her discharge. Follow-up with Dr. Mejia's office 05/11/2017 at which time abmibola will be removed. 05/10/17 17:58 Subjective: Unhappy about planned discharge home tomorrow. Otherwise without any specific complaints. Pain is well controlled. She felt less groggy on tramadol last night rather than oxycodone. Objective: Vital Signs Temp Pulse Resp BP Pulse Ox 36.6 C 74 17 102/54 L 93 05/10/17 05:22 05/10/17 05:22 05/10/17 05:22 05/10/17 05:22 05/10/17 05:22 Laboratory Results 04/29/17 06:30 05/09/17 05/10/17 05/11/17 05:59 05:59 05:59 Intake Total 2320 2040 1000 Balance 2320 2040 1000 - Time Spent With Patient Time Spent With Patient: Greater than 35 minutes floor time today, including more than 50% of time in coordination of care during staffing meeting, and counseling patient. Physical Exam - Physical Exam General Appearance: WD/WN, alert, no apparent distress, obese Respiratory: No respiratory distress, No accessory muscle use Cardiac/Chest: edema (1+ right lower extremity.) Skin: normal color, warm/dry Neuro/Psych: no motor/sensory deficits, alert, normal mood/affect, oriented x 3 ICD10 Worksheet Patient Problems: Problems Problem Status Onset Chest pain Acute
--- NOTE | 2017-05-10 18:03 | SOAPPROG ---
SOAP Progress Note Assessment/Plan: Assessment: Status post right total knee [id number]/23/17 in an obese woman with history of left crhoz-uue-kzea amputation and a prosthetic leg. * Initial functional independence measure of 91 on 04/29/2017; improved to 100 on 05/04/2017 and to 119 as of 05/10/2017.. She is independent in her room during the day. She ambulated 300 feet with crutches. She did a car transfer with standby assist. She has negotiated 6 stairs with bilateral crutches. She is independent with her ADLs. She has transferred from a 17 inch height. * Successful outing to [facility] 05/06/2017. She is able to use shower seat at the [facility] and arise independently from it. * She has met all therapy goals. Pain management. * Continue morphine SR 15 mg three times daily starting 05/04/2017. Continue oxycodone 5-10 mg q.3 hours p.r.n. continue tramadol 50 mg scheduled at HS and 50 mg q.4 hours p.r.n., beginning 05/09/2017. Continue acetaminophen scheduled at 1000 mg q.8 hours. Obesity with weight gain due to reduced activity over a period of years. Consult with the dietitian. Constipation. Responding to bowel protocol. * Continue senna 2 tabs scheduled b.i.d. and polyethylene glycol 17 g p.o. q. day starting today. Bisacodyl suppository as well as an enema are available. Prophylaxis. Ambulating 150 feet multiple times per day. Will discontinue enoxaparin 05/03/2017. Resume ASA until 2 weeks post-surgery. No need for ÁNGEL hose. Attended staffing, 15 minutes. Discussed with case management, nursing, PT, OT. She has met all rehabilitation goals including being able to transfer from a 17 inch height. She will be bathing at the [facility] where the handicapped shower seat is 17 inches high. Final barrier to discharge is obtaining a bedside commode for the home. Will discharge home tomorrow, 05/11/2017. 30 minutes conversation was had with patient and case management regarding barrier to discharge and plan to discharge tomorrow. FOLLOWUP: She will follow up with her primary care provider, Dr. Teofilo Dawkins , after her discharge. Follow-up with Dr. Mejia's office 05/11/2017 at which time abimbola will be removed. 05/10/17 17:58 Subjective: Unhappy about planned discharge home tomorrow. Otherwise without any specific complaints. Pain is well controlled. She felt less groggy on tramadol last night rather than oxycodone. Objective: Vital Signs Temp Pulse Resp BP Pulse Ox 36.6 C 74 17 102/54 L 93 05/10/17 05:22 05/10/17 05:22 05/10/17 05:22 05/10/17 05:22 05/10/17 05:22 Laboratory Results 04/29/17 06:30 05/09/17 05/10/17 05/11/17 05:59 05:59 05:59 Intake Total 2320 2040 1000 Balance 2320 2040 1000 - Time Spent With Patient Time Spent With Patient: Greater than 35 minutes floor time today, including more than 50% of time in coordination of care during staffing meeting, and counseling patient. Physical Exam - Physical Exam General Appearance: WD/WN, alert, no apparent distress, obese Respiratory: No respiratory distress, No accessory muscle use Cardiac/Chest: edema (1+ right lower extremity.) Skin: normal color, warm/dry Neuro/Psych: no motor/sensory deficits, alert, normal mood/affect, oriented x 3 ICD10 Worksheet Patient Problems: Problems Problem Status Onset Chest pain Acute
--- NOTE | 2017-05-10 18:22 | PDOREHIP ---
Admission [facility] - Admission - 3 Day Assessment Period Admission Date/Day 1: 04/27/17 Day 2: 04/28/17 Day 3: 04/29/17 Discharge [facility] - Discharge - 3 Day Assessment Period 2 Days Prior to Anticipated Discharge Date: 05/09/17 1 Day Prior to Anticipated Discharge Date: 05/10/17 Anticipated Discharge Date: 05/11/17 - Discharge Skin Conditions Unhealed Pressure Ulcer (1 or more/Stage 1 or >)-Discharge: 0. No
[2017-05-10 18:45] VITALS: RESP 16; TEMP 98.2
[2017-05-10] MEDS: traMADol 50 MG TAB PO SCH (21:23)
[2017-05-11] MEDS: traMADol 50 MG TAB PO PRN (01:13)
[2017-05-11] MEDS: ACETAMINOPHEN 500 MG TAB PO SCH (06:33)
[2017-05-11] MEDS: morphINE SR 15 MG TAB PO SCH (06:34)
[2017-05-11 08:13] VITALS: BP 92/70; PULSE 87; O2SAT 96
[2017-05-11] MEDS: POLYETHYLENE GLYCOL 3350 17 GM PKT PO SCH (08:22)
[2017-05-11] MEDS: ASPIRIN 325 MG TAB PO SCH (08:22)
[2017-05-11] MEDS: SENNOSIDES 1 TAB PO SCH (08:22)
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
== END 2017-05-11 11:00 | disposition still patient (30) | DRG 561 ==
LOC: BREH 15:18
PROVIDERS: ADMIT Internal Medicine; ATTEND Internal Medicine
DX: Z47.1 Aftercare following joint replacement surgery (principal); Z89.611 Acquired absence of right leg above knee; K59.00 Constipation, unspecified; E66.9 Obesity, unspecified; Z68.33 Body mass index [BMI] 33.0-33.9, adult
CPT/HCPCS: 97110-GO; 97110-GP; 97116-GP; 97162-GP; 97166-GO; 97530-GO; 97530-GP; 97535-GO; 97537-GO; 99366-GO; J1650

== ENCOUNTER → 2017-06-09 | Outpatient (CLI) | payer MEDICAID | LOC: BMCIMAGING 09:23 | PROVIDERS: ATTEND Orthopaedic Surgery | DX: Z09 Encounter for follow-up examination after completed treatment for conditions other than malignant neoplasm (principal); Z96.651 Presence of right artificial knee joint ==

== ENCOUNTER → 2017-07-27 | Outpatient (CLI) | payer MEDICAID | LOC: BMCIMAGING 09:18 | PROVIDERS: ATTEND Orthopaedic Surgery | DX: M16.11 Unilateral primary osteoarthritis, right hip (principal); M21.752 Unequal limb length (acquired), left femur; Z96.651 Presence of right artificial knee joint ==

== ENCOUNTER → 2017-10-25 | Outpatient (CLI) | payer MEDICAID | LOC: BMCIMAGING 09:31 | PROVIDERS: ATTEND Orthopaedic Surgery | DX: Z47.1 Aftercare following joint replacement surgery (principal); Z96.651 Presence of right artificial knee joint ==

== ENCOUNTER 2018-04-12 09:59 | Emergency (ER) | payer MEDICAID ==
[2018-04-12 10:06] VITALS: BP 116/49
[2018-04-12] MEDS ORDERED: TDAP ADULT 0.5 ML INJ (BOOSTRIX) IM ONE (10:13)
[2018-04-12] MEDS ORDERED: TETANUS, DIPHTHERIA TOX (7YR+) 0.5 ML INJ IM ONE (10:27)
--- NOTE | 2018-04-12 10:27 | EDPHY ---
H & P Time Seen by Provider: 04/12/18 10:14 HPI/ROS: CHIEF COMPLAINT: Laceration right hand HISTORY OF PRESENT ILLNESS: 52-year-old female with out-of-date tetanus was washing dishes this morning sustained accidental laceration to the dorsum of the right fingers specifically 2nd and 3rd digits. No paresthesia. No sensory motor deficit. No definitive foreign body sensation PHYSICAL EXAM (Prior to examination, patient consented to physical exam, hands were washed and my usual and customary physical exam procedures followed) 1) GENERAL: Well-developed, well-nourished, alert and oriented. Appears to be in no acute distress. 2) HEAD: Normocephalic 3) HEENT: sclera anicteric 4) LUNGS: Breathing comfortably. 5) MUSCULOSKELETAL:] right 3rd digit dorsal PIP joint 1.5 cm well-demarcated linear laceration. Right 2nd digit middle phalanx dorsal aspect 3 mm laceration ]. The extensor function at the MCP PIP D IP intact. 6) NEUROLOGIC: Full sensation two-point discrimination intact distally Smoking Status: Never smoked Constitutional: Initial Vital Signs Temperature (C) 36.6 C 04/12/18 10:04 Heart Rate 73 04/12/18 10:04 Respiratory Rate 16 04/12/18 10:04 Blood Pressure 116/49 L 04/12/18 10:04 O2 Sat (%) 96 04/12/18 10:04 O2 Delivery Mode Room Air Allergies/Adverse Reactions: No Known Allergies Allergy (Unverified 10/15/16 21:30) Home Medications: Medication Instructions Recorded Aspirin [Aspirin 325 mg (*)] 325 mg PO DAILY tab 04/27/17 Acetaminophen [Tylenol ES 500 mg 1,000 mg PO Q8 tab 05/06/17 (*)] Polyethylene Glycol 3350 [Miralax 17 gm PO DAILY pkt 05/06/17 17 gm (*)] Sennosides [Senokot] 2 tab PO BID tab 05/06/17 morphINE SR [Ms Contin/Oramorph 15 15 mg PO TID@0700,1400,2200 #30 tab 05/06/17 mg (*)] oxyCODONE IR [Oxycodone Ir (*)] 5 - 10 mg PO Q3HRS PRN #30 tab 05/06/17 traMADol [Ultram 50 mg (*)] 50 mg PO Q4HRS PRN #30 tab 05/10/17 Cephalexin [Keflex] 500 mg PO TID 5 Days cap 04/12/18 MDM/Departure - [facility] Imaging Results: Imaging Impressions Hand X-Ray 04/12/18 10:21 Impression: No posttraumatic bone or joint abnormality identified.. Images reviewed myself Procedures: Procedure: Laceration repair. I explained the indications, risks and benefits for both laceration repair and anesthetic administration. Verbal consent was obtained from the patient. The laceration on the middle digit was anesthetized using 0.5% bupivicaine without epinephrine digital nerve block. After anesthetic administered the patient was observed for a period of time and had no apparent adverse effects. The wound was cleaned, prepped, draped in normal sterile fashion and explored to its base. No foreign body seen, no foreign bodies palpated. There were no deep structures involved. No tendon injury was identified. The wound was repaired with 5 simple interrupted 5 O Prolene sutures. The wound repair was simple. The procedure was performed by myself. Patient has been informed that scarring will occur, although efforts have been made to minimize this. Medications Given: Discontinued Medications Diphtheria/Tetanus/Acell Pertussis (Boostrix) 0.5 ml IM .ONCE ONE Stop: 04/12/18 10:14 Last Admin: 04/12/18 10:23 Dose: Not Given Tetanus/Diphtheria Toxoids Adsorbed (Tetanus-Diphtheria Grifols) 0.5 ml IM .ONCE ONE Stop: 04/12/18 10:28 Last Admin: 04/12/18 10:32 Dose: 0.5 ml - Depart Disposition: Home, Routine, Self-Care Clinical Impression: Laceration of right index finger Qualifiers: Encounter type: initial encounter Damage to nail status: without damage Foreign body presence: without foreign body Qualified Code(s): S61.210A - Laceration without foreign body of right index finger without damage to nail, initial encounter Condition: Good Instructions: Laceration (ED) Additional Instructions: Return to the ER if you develop redness, swelling, discharge, warmth to the wound, red streaks going up your arm , or any other symptoms that concern you. Prescriptions: Cephalexin [Keflex] 500 mg PO TID 5 Days cap Referrals: Return, to the ER in 10 days for suture removal [Other] - As per Instructions
== END 2018-04-12 11:37 | disposition home or self-care (01) ==
PROC: 0HQFXZZ Repair Right Hand Skin, External Approach (ICD-10-PCS; principal; 2018-04-12)
DX: S61.210A Laceration without foreign body of right index finger without damage to nail, initial encounter (principal); Z23 Encounter for immunization; Y93.G1 Activity, food preparation and clean up; W26.8XXA Contact with other sharp object(s), not elsewhere classified, initial encounter; Y92.000 Kitchen of unspecified non-institutional (private) residence as the place of occurrence of the external cause
CPT/HCPCS: L3925

== ENCOUNTER 2018-04-21 11:29 | Inpatient (IN) | payer MEDICAID ==
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
[2018-04-21 17:08] LABS: PLATELET COUNT 296 10^3/uL (150-400)
[2018-04-21] MEDS ORDERED: BUPIVACAINE 0.5% 30 ML SDV ONE (18:03)
[2018-04-21] MEDS ORDERED: AMPICILLIN/SULBACTAM 3 GM in NS 100 ML IV ONE (18:19)
[2018-04-21] MEDS ORDERED: MIDAZOLAM 2 MG/2 ML VIAL ONE (18:28)
[2018-04-21] MEDS ORDERED: MIDAZOLAM 2 MG/2 ML VIAL IVP ONE (18:30)
--- NOTE | 2018-04-21 18:33 | PDANEPAE ---
ANE Past Medical History - Cardiovascular History Hx Hypertension: No Hx Arrhythmias: No Hx Chest Pain: No Hx Coronary Artery / Peripheral Vascular Disease: No Hx CHF / Valvular Disease: No Hx Palpitations: No - Pulmonary History Hx COPD: No Hx Asthma/Reactive Airway Disease: No Hx Recent Upper Respiratory Infection: No Hx Oxygen in Use at Home: No Hx Sleep Apnea: No - Neurologic History Hx Cerebrovascular Accident: No Hx Seizures: No Hx Dementia: No - Endocrine History Hx Diabetes: No - Renal History Hx Renal Disorders: No - Liver History Hx Hepatic Disorders: No - Neurological & Psychiatric Hx Hx Neurological and Psychiatric Disorders: No - Cancer History Hx Cancer: No - Congenital Disorder History Hx Congenital Disorders: No - GI History Hx Gastrointestinal Disorders: No - Other Health History Other Health History: amputation of left leg - Chronic Pain History Chronic Pain: Yes (right hip) - Surgical History Prior Surgeries: 2016 infection debridment ANE Review of Systems Review of Systems: ANE Patient History - Allergies Allergies/Adverse Reactions: No Known Allergies Allergy (Unverified 04/21/18 11:44) - Home Medications Home medications: home medication list seen and reviewed Home Medications: Sulfamethox/Tmp 800/160 mg [Bactrim Ds] 1 tab PO BID 04/21/18 [Last Taken 09:00] traMADol [Ultram 50 mg (*)] 50 mg PO Q6HRS PRN 04/21/18 [Last Taken 04/20/18] - NPO status NPO Status: no food or drink >8 hours NPO Since - Liquids (Date): 04/21/18 NPO Since - Liquids (Time): 07:30 NPO Since - Solids (Date): 04/21/18 NPO Since - Solids (Time): 07:30 - Anes Hx Anes Hx: no prior problems - Smoking Hx Smoking Status: Never smoked - Family Anes Hx Family Hx Anesthesia Complications: none ANE Labs/Vital Signs - Labs Result Diagrams: 04/21/18 17:03 04/21/18 17:03 - Vital Signs Blood Pressure: 115/69 Heart Rate: 80 Respiratory Rate: 18 O2 Sat (%): 97 Height: 180.34 cm Weight: 102.058 kg ANE Physical Exam - Airway Neck exam: FROM Mallampati Score: Class 2 Mouth exam: normal dental/mouth exam - Pulmonary Pulmonary: no respiratory distress, no rales or rhonchi, clear to auscultation - Cardiovascular Cardiovascular: regular rate and rhythym, no murmur, rub, or gallop - ASA Status ASA Status: II ANE Anesthesia Plan Anesthesia Plan: GA w LMA
[2018-04-21] MEDS ORDERED: fentaNYL 100 MCG/2 ML INJ ONE (18:35)
[2018-04-21] MEDS ORDERED: PROPOFOL 200 MG/20 ML VIAL ONE (18:35)
[2018-04-21] MEDS ORDERED: LIDOCAINE 2% JELLY 5 ML TUBE ONE (18:37)
[2018-04-21] MEDS ORDERED: ONDANSETRON 4 MG/2 ML VIAL ONE (18:37)
[2018-04-21] MEDS ORDERED: NALOXONE HCL 0.4 MG/ML INJ IVP PRN (18:53)
[2018-04-21] MEDS ORDERED: HYDROCODONE/APAP 5/325 TAB PO PRN (18:53)
[2018-04-21] MEDS ORDERED: oxyCODONE IR 5 MG TAB PO PRN (18:53)
[2018-04-21] MEDS ORDERED: PROMETHAZINE HCL 25 MG/ML INJ IVP PRN (18:53)
[2018-04-21] MEDS ORDERED: ACETAMINOPHEN 500 MG TAB PO PRN (18:53)
[2018-04-21] MEDS ORDERED: LR 500 ML IV PRN (18:53)
[2018-04-21] MEDS ORDERED: ONDANSETRON 4 MG/2 ML VIAL IVP PRN (18:53)
[2018-04-21] MEDS ORDERED: fentaNYL 100 MCG/2 ML INJ IVP PRN (18:53)
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
[2018-04-21] MEDS ORDERED: ONDANSETRON DISINTEGRATING 4 MG TAB PO PRN (19:20)
[2018-04-21] MEDS ORDERED: TEMAZEPAM 15 MG CAP PO PRN (19:20)
[2018-04-21] MEDS ORDERED: traMADol 50 MG TAB PO PRN (19:27)
--- NOTE | 2018-04-21 19:27 | POSTANESTH ---
Post Anesthetic Evaluation Cardiovascular Status: Normal, Stable, Similar to Pre-Op Cond Respiratory Status: Normal, Stable, Similar to Pre-op Cond. Level of Consciousness/Mental Status: Can Participate in Eval, Mildly Sleepy, Arousable Pain Control: Adequate, Prn Tx Ordered Nausea/Vomiting Control: Adequate, Prn Tx Ordered Complications Possibly Related to Anesthesia: None Noted
--- NOTE | 2018-04-21 19:35 | POSTOPPROG ---
Post Op Note Date of Operation: 04/21/18 Surgeon: Vinod Mejia Commercial Producer: none Anesthesiologist: loyd Anesthesia: GET(General Endotracheal) Pre-op Diagnosis: right long pip infection Post-op Diagnosis: same Indication: same Procedure: right long pip i and d Inf/Abcess present in the surg proc area at time of surgery?: Yes Depth: Deep Incisional (Fascial) EBL: Minimal
[2018-04-21] MEDS ORDERED: ACETAMINOPHEN 500 MG TAB ONE ×2 (20:08→20:10)
[2018-04-22] MEDS: AMPICILLIN/SULBACTAM 3 GM in NS 100 ML IV SCH ×4 (01:35→19:39)
[2018-04-22] MEDS: oxyCODONE IR 5 MG TAB PO PRN ×5 (07:40→21:03)
--- NOTE | 2018-04-22 08:06 | SOAPPROG ---
SOAP Progress Note Assessment/Plan: Assessment: s/p i and d right hand Plan: continue iv abx oob as stuart will d/c home tomorrow if stable id consult today 04/22/18 08:05 Subjective: pain no fevers no cp or sob Objective: Vital Signs Temp Pulse Resp BP Pulse Ox 36.7 C 77 17 115/69 94 04/22/18 07:34 04/22/18 07:34 04/22/18 07:34 04/22/18 07:34 04/22/18 07:34 Microbiology 04/21/18 18:51 Gram Stain - Final Finger - Eswab Laboratory Results 04/21/18 17:03 04/21/18 17:03 04/21/18 04/22/18 04/23/18 05:59 05:59 05:59 Intake Total 1190 Balance 1190 dressing changed incision c/d/i limited mobility sensation intact to r/u aspect ICD10 Worksheet Patient Problems: Problems Problem Status Onset Chest pain Acute
[2018-04-22] MEDS ORDERED: BISACODYL 10 MG SUPP PR PRN (08:07)
[2018-04-22] MEDS ORDERED: LACTULOSE 20 GM/30 ML UDCUP PO PRN (08:07)
[2018-04-22] MEDS ORDERED: POLYETHYLENE GLYCOL 3350 17 GM PKT PO PRN (08:07)
[2018-04-22] MEDS ORDERED: MAGNESIUM HYDROXIDE 30 ML UDCUP PO PRN (08:07)
[2018-04-22] MEDS: SENNOSIDES/DOCUSATE SODIUM TAB PO SCH ×2 (08:36→19:39)
[2018-04-22] MEDS ORDERED: ALTEPLASE 2 MG VIAL IVP PRN (10:50)
--- NOTE | 2018-04-22 11:27 | PDMN ---
Medical Necessity Medical necessity: [employer] M605 Septic Arthritis: 52 yo s/p I&D R middle finger for septic arthritis following laceration last week. Initially laceration washed and sutured in ED, pt placed on antibx, sutures removed today, increased pain and swelling noted, pt instructed to f/u again in ED. Eval by ortho surg, pt dx w/ septic long finger proximal interphalangeal joint and subcutaneous abscess. Urgent surgical intervention completed. Anticipate>2MN for ongoing IV antibx and ID consult.
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
--- NOTE | 2018-04-22 14:46 | ASMTCMCOM ---
CM Note CM Note Notes: Pt is s/p I&D R hand for infected finger with possible osteomyelitis. ID recommending PICC placement and retirement IV ABX. Discussed options with pt. She would like to know costs before making a decision whether to come to [facility] vs having [facility] and [facility]. If she decides on home infusion, she will self administer. Cultures pending - drug and dosage/frequency not known at this time. Referrals sent via [employer]. CM will follow for d/c needs. Date Signed: 04/22/2018 02:45 PM Electronically Signed By:WALTER Diggs
[2018-04-23] MEDS: AMPICILLIN/SULBACTAM 3 GM in NS 100 ML IV SCH ×2 (01:23→07:58)
[2018-04-23] MEDS: oxyCODONE IR 5 MG TAB PO PRN (01:43)
[2018-04-23] MEDS: SENNOSIDES/DOCUSATE SODIUM TAB PO SCH (07:58)
--- NOTE | 2018-04-23 08:39 | PDIAF ---
- Diagnosis Diagnosis: R middle finger PIP septic arthritis and OM Code Status: Full Code - Medication Management Discharge Medications: Medications to Continue on Transfer traMADol [Ultram 50 mg (*)] 50 mg PO Q6HRS PRN 04/21/18 [Last Taken 04/20/18] Bookstore Manager Antibiotics: ceftriaxone 2gm IV daily [facility] Antibiotic Stop Date: 06/02/18 Discharge Medications: Refer to the Discharge Home Medication list for PRN reason. PICC Care - Routine: Yes - Orders Services needed: Home Care, Registered Nurse Home Care Face to Face: I certify that this patient was under my care and that I had the required [id number] encounter meeting the encounter requirements on the discharge day. My findings support the fact that the patient is homebound as defined in Home Care Face to Face Continued: CMS Chapter 7 Medicare Benefits Manual 30.1.1 , The condition of the patient is such that there exists a normal inability to leave home and consequently, leaving home would require a considerable and taxing effort. Isolation Type: None - Labs/Radiology CBC w/diff Date: 04/24/18 (Weekly tuesday) CMP Date: 04/24/18 (weekly tuesday) CRP Date: 04/24/18 (weekly tuesday) - Follow Up Care Current Providers and Referrals: Ezequiel Dawkins MD [Primary Care Provider] - As per Instructions Latricia Mallory MD [Medical Doctor] - 05/03/18 1:30 pm
[2018-04-23 08:44] VITALS: BP 98/56
--- NOTE | 2018-04-23 09:20 | PCMIDPN ---
Assessment/Plan: R Middle finger PIP septic arthritis and possible OM: cx NGTD but cx still quite young. Will treat for typical pathogens : staph, strep, p acnes. Wound exam okay to day, some erythema medial aspect proximal middle finger, expected swelling present, no drainage --Rx ceftriaxone as outpatient, patient desires infusion center --follow up w me in 7-10 days Meds Unasyn 3gm IV q6h #2 micro R middle PIP 4+ PMNs, no org; cx NGTD Subjective: patient worried about swelling R hand but did not elevate at all yesterday no diarrhea slept okay appetite okay Objective: Vital Signs Temp Pulse Resp BP Pulse Ox 36.7 C 73 17 98/56 L 94 04/23/18 08:00 04/23/18 08:00 04/23/18 08:00 04/23/18 08:00 04/23/18 08:00 04/22/18 04/23/18 04/24/18 05:59 05:59 05:59 Intake Total 1190 1450 Balance 1190 1450 C-Reactive Protein 5.2 mg/L (<10.0) 04/22/18 11:11 - Physical Exam General Appearance: alert, no apparent distress Respiratory: No accessory muscle use Extremities: other (R middle finger incision intact no drainage; mild erythema medial surface prox middle finger, + expected swelling, minimal tenderness) Skin: No rash Neuro/Psych: alert, normal mood/affect, oriented x 3 - Line/s RUE PICC Lines: No drainage, No erythema - Time Spent With Patient Time Spent with Patient: greater than 35 minutes (care coordinated w Dr. Mejia , nursing, post discharge planning) Time Spent with Patient: Greater than 35 minutes spent on this patients care, greater than 50% of time spent counseling, educating, and coordinating care regarding the above mentioned plan. ICD10 Worksheet Patient Problems: Problems Problem Status Onset Chest pain Acute
--- NOTE | 2018-04-23 11:42 | GOP ---
DATE OF OPERATION: 04/21/2018 SURGEON: Vinod Mejia MD NEWSPAPER ILLUSTRATOR: None PREOPERATIVE DIAGNOSIS: Right long finger septic proximal interphalangeal joint, status post lacerat ion. POSTOPERATIVE DIAGNOSIS: Right long finger septic proximal interphalangeal joint, status post lacera tion. PROCEDURE PERFORMED: Right long finger irrigation and debridement of a septic proximal interphalange al joint. FINDINGS: INDICATIONS: The patient is a 52-year-old woman who is well known to me for previous right total kne e replacement. On the 12 of April, she cut her hand in the sink. She does not recall exactly wh at she cut this upon. She was seen in the emergency department where the wound was irrigated and gloria rided and closed primarily with sutures. She subsequently developed increasing redness, swelling, an d was seen by Dr. Xiomara Diane who sent her to the emergency department. An MRI was obtained which de monstrated fluid at the PIP joint and edema in the distal aspect of the proximal phalanx and clinical evaluation revealed infection. She was therefore set up for irrigation and debridement of presumed infected PIP joint. She had no lymphangitis signs, no flexor tenosynovitis signs. She wished to pro ceed. DESCRIPTION OF PROCEDURE: The patient was identified in the preanesthesia area. The right hand was clearly demarcated as the operative site with indelible marker. She was given no preoperative antibi otics. In the OR, general endotracheal anesthesia was administered. Attention was turned to the rig ht hand. A digital tourniquet was placed with a size 6 glove rolled from the tip of the finger to th e metacarpophalangeal joint. Appropriate time-out procedure had been carried out. The previous sutu res were removed. The wound was opened. There was gross purulence. Culture swabs were sent. This was opened to the extensor pollock which was linearly transected from the previous laceration. This was opened and communicated directly to the PIP joint with gross purulence. There was a dorsal cortical fracture as well, which was nondisplaced and stable. The wound was then copiously irrigated with a bulb syringe with manipulation of the digit. No remaining purulence was identified. Soft tissue gloria ridement had been carried out concomitantly. The wound was then closed at the skin only, loosely wit h 3-0 nylon. A sterile dressing was applied. The patient was awakened, taken to the recovery room i n good, stable condition. She will be admitted for IV antibiotics. Infectious Disease will be consu lted given the open fracture and open septic joint. /[id number]/MODL
--- NOTE | 2018-04-23 12:39 | SOAPPROG ---
SOAP Progress Note Assessment/Plan: Assessment: s/p i and d right hand Plan: continue iv abx oob as stuart will d/c home iv abx per id 04/22/18 08:05 04/23/18 12:38 Subjective: no pain no cp or sob Objective: Vital Signs Temp Pulse Resp BP Pulse Ox 36.7 C 73 17 98/56 L 94 04/23/18 08:00 04/23/18 08:00 04/23/18 08:00 04/23/18 08:00 04/23/18 08:00 04/22/18 04/23/18 04/24/18 05:59 05:59 05:59 Intake Total 1190 1450 Balance 1190 1450 dressing intact intact digitial flex and ext limited secondary to pain intact sensation to light touch ICD10 Worksheet Patient Problems: Problems Problem Status Onset Chest pain Acute
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
--- NOTE | 2018-04-23 13:59 | ASDISCHSUM ---
Discharge Information Plan Status:IV ABX/Infusion Medically Cleared to Leave:04/23/2018 Discharge Date:04/23/2018 01:38 PM CM D/C Disposition: COUNT INCLUDES THE [facility] D/C Disposition:[id number] Projected Discharge Date:04/23/2018 02:00 PM Transportation at D/C:Family Discharge Delay Reason: Follow-Up Date:04/23/2018 02:00 PM Discharge Slot:2 - 12:01 pm - 18:00 pm Final Diagnosis:R finger joint infection Placement Information Referral Type:Home Infusion Referral ID:[id number] Provider Name: Address 1: Phone Number: Address 2: Fax Number: City: Selection Factors: State: Referral Type:*Home Health Care Services Referral ID:[id number] Provider Name: Address 1: Phone Number: Address 2: Fax Number: City: Selection Factors: State: Patient Contact Information Contact Name:SANTOSARSALANCAROLINA Relationship: Address:[address] [place] [address] Work Phone: City:[place] Alternate Phone: State/Zip Code:[place] [address] Email: Financial Information Financial Class:Medicaid Primary Plan Desc:MEDICAID [facility] [employer] Primary Plan Number:[id number] Secondary Plan Desc: Secondary Plan Number: Assessment Information LACE LACE Length of stay for Answers: 2 days current admission Acuity / Level of Answers: Yes Care: Did the patient have an inpatient admission? # of Emergency department Answers: 1-2 visits in the last 6 months Score: 6 Date Signed: 04/23/2018 01:58 PM Electronically Signed By:Bambi Cook LCSW [facility] CM Progress Note CM Note CM Note Notes: Pt is s/p I&D R hand for infected finger with possible osteomyelitis. ID recommending PICC placement and long term care social worker IV ABX. Discussed options with pt. She would like to know costs before making a decision whether to come to [facility] Infusion Clinic vs having [facility] and [facility]. If she decides on home infusion, she will self administer. Cultures pending - drug and dosage/frequency not known at this time. Referrals sent via [employer]. CM will follow for d/c needs. Date Signed: 04/22/2018 02:45 PM Electronically Signed By:WALTER Diggs Case Management Discharge Plan Note Case Management Discharge Discharge Order Complete? Answers: Yes Patient to Obtain Answers: Other Notes: infusion ctr Medications Transportation Arranged Answers: Family/Friends Transport will Pick (Date 04/23/2018 02:00 PM & Time) Family Notified Answers: Yes Notes: Family to transport Discharge Comments Notes: Patient has been discharged. She was worried about infection so decided to come to the Infusion Ctr rather than having [facility] go to her home. [facility] and [facility] were cancelled. Date Signed: 04/23/2018 01:56 PM Electronically Signed By:Bambi Cook LCSW Intervention Information Intervention Type:*Incorrect Registration Date of Service:04/22/2018 09:55 AM Patient Type:Observation Staff Member:Giovanna Antonio Hours: Discipline: Severity: Comment:
== END 2018-04-23 13:38 | disposition home health service (06) | DRG 344 ==
LOC: OBSVTOIN 19:27 → F3N 20:30
PROVIDERS: ADMIT Orthopaedic Surgery; ATTEND Orthopaedic Surgery
PROC: 0RBW0ZX Excision of Right Finger Phalangeal Joint, Open Approach, Diagnostic (ICD-10-PCS; principal; 2018-04-21 20:00)
PROC: 02HV33Z Insertion of Infusion Device into Superior Vena Cava, Percutaneous Approach (ICD-10-PCS; 2018-04-22)
DX: M00.841 Arthritis due to other bacteria, right hand (principal); Z96.651 Presence of right artificial knee joint; Z89.612 Acquired absence of left leg above knee
CPT/HCPCS: C1751; J0295; J0696; J2250; J2405; J2704; J3010

== ENCOUNTER 2018-04-26 00:46 | Emergency (ER) | payer MEDICAID ==
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
[2018-04-26 02:04] VITALS: BP 108/61
== END 2018-04-26 02:04 | disposition home or self-care (01) ==
DX: M79.605 Pain in left leg (principal); M86.9 Osteomyelitis, unspecified; Z89.512 Acquired absence of left leg below knee; Z96.651 Presence of right artificial knee joint; Z95.9 Presence of cardiac and vascular implant and graft, unspecified